=== PATIENT | female | born 1995 | race African-American/Black ===

== ENCOUNTER 2016-07-03 09:04 | Emergency (ER) | payer SELFPAY ==
[2016-07-03 09:10] VITALS: BP 124/86
--- NOTE | 2016-07-03 09:26 | ER Document Report ---
ED GI/ - General Chief Complaint: Abdominal Pain Stated Complaint: STOMACH PAIN Notes: The patient is a 21-year-old female who presents with 2 days of epigastric abdominal pain, described as a cramping sensation, and mild suprapubic pain with dysuria. She has had this multiple times in the past and it goes away without any intervention. Her last menstrual period was 4 weeks ago. She denies nausea, vomiting, fevers, flank pain, diarrhea, constipation, chest pain or shortness of breath. TRAVEL OUTSIDE OF THE [place] IN LAST 30 DAYS: No - Related Data Allergies/Adverse Reactions: No Known Allergies Allergy (Verified 07/03/16 09:08) Past Medical History - General Information source: Patient - Social History Smoking Status: Unknown if Ever Smoked Chew tobacco use (# tins/day): No Frequency of alcohol use: None Drug Abuse: None Family History: Reviewed & Not Pertinent Patient has suicidal ideation: No Patient has homicidal ideation: No Neurological Medical History: Reports: Hx Migraine - chronic MCINTOSH "yrs" Musculoskeltal Medical History: Reports Hx Musculoskeletal Trauma - Immunizations Immunizations up to date: Yes Hx Diphtheria, Pertussis, Tetanus Vaccination: Yes Review of Systems - Review of Systems Notes: REVIEW OF SYSTEMS: CONSTITUTIONAL: -fevers, -chills EENT: Denies eye, ear, throat, or mouth pain or symptoms. Denies nasal or sinus congestion. CARDIOVASCULAR: Denies chest pain, syncope. RESPIRATORY: Denies cough, cold, or chest congestion. Denies shortness of breath, difficulty breathing, or wheezing. GASTROINTESTINAL: +abdominal pain. Denies nausea, vomiting, or diarrhea. Denies constipation. GENITOURINARY: Denies difficulty urinating, painful urination, burning, frequency, or blood in urine. MUSCULOSKELETAL: Denies neck or back pain or joint pain or swelling. SKIN: Denies rash or skin lesions. HEMATOLOGIC: Denies easy bruising or bleeding. LYMPHATIC: Denies swollen, enlarged glands. NEUROLOGICAL: Denies altered mental status or loss of consciousness. Denies headache. Denies weakness or paralysis or loss of use of either side. Denies problems with gait or speech. Denies sensory or motor loss. PSYCHIATRIC: Denies anxiety or stress or depression. ALL OTHER SYSTEMS REVIEWED AND NEGATIVE. Physical Exam - Vital signs Vitals: Temp Pulse Resp BP Pulse Ox 98.5 F 78 16 124/86 H 99 07/03/16 09:08 07/03/16 09:08 07/03/16 09:08 07/03/16 09:08 07/03/16 09:08 - Notes Notes: PHYSICAL EXAMINATION: GENERAL: Well-appearing, well-nourished and in no acute distress. HEAD: Atraumatic, normocephalic. EYES: Pupils equal round and reactive to light, extraocular movements intact, sclera anicteric, conjunctiva are normal. ENT: nares patent, oropharynx clear without exudates. Moist mucous membranes. NECK: Normal range of motion, supple without lymphadenopathy LUNGS: Breath sounds clear to auscultation bilaterally and equal. No wheezes rales or rhonchi. HEART: Regular rate and rhythm without murmurs ABDOMEN: Soft, mild epigastric tender, mild suprapubic tenderness, normoactive bowel sounds. No guarding, no rebound. No masses appreciated. EXTREMITIES: Normal range of motion, no pitting or edema. No cyanosis. NEUROLOGICAL: Cranial nerves grossly intact. Normal speech, normal gait. Normal sensory, motor, and reflex exams. PSYCH: Normal mood, normal affect. SKIN: Warm, Dry, normal turgor, no rashes or lesions noted. Course - Re-evaluation Re-evalutation: With mild epigastric pain and suprapubic pain, the patient most likely has gastritis and a UTI. She is not . Will treat with Pepcid, Macrobid and follow up with her primary care physician. - Vital Signs Vital signs: Temp Pulse Resp BP Pulse Ox 98.5 F 78 16 124/86 H 99 07/03/16 09:08 07/03/16 09:08 07/03/16 09:49 07/03/16 09:08 07/03/16 09:08 - Laboratory Laboratory results interpreted by me: 07/03/16 09:35 Ur Leukocyte Esterase LARGE H Discharge - Discharge Clinical Impression: Epigastric abdominal pain UTI (urinary tract infection) Qualifiers: Urinary tract infection type: acute cystitis Hematuria presence: without hematuria Qualified Code(s): N30.00 - Acute cystitis without hematuria Condition: Good Disposition: HOME, SELF-CARE Additional Instructions: URINARY TRACT INFECTION: Your evaluation indicates that you have a urinary tract infection. This is due to germs growing in the bladder. This is a common problem. This infection usually responds quickly to antibiotics. Your antibiotic should be taken exactly as prescribed. Drink plenty of fluids -- three to four quarts a day. Occasionally, a bladder anesthetic will be prescribed to help stop the feeling of urgency until the antibiotic has a chance to clear the infection. This may cause your urine to be dark orange. Certain urine infections require a culture. If the doctor obtained a culture, the results will be back in two days. You should call to see if a change in treatment is needed. A repeat urinalysis after you finish treatment is often recommended. The physician will let you know if further testing is required. Call the doctor if you develop fever, chills, flank pain, inability to urinate, or blood in the urine. ANTIBIOTIC THERAPY: You have been given an antibiotic prescription. It's important that you take all the medication, unless instructed otherwise by your physician. Failure to complete the entire course can result in relapse of your condition. Common side effects of antibiotics include nausea, intestinal cramping, or diarrhea. Women may develop vaginal yeast infections, and babies can get yeast (thrush) in the mouth following the use of antibiotics. Contact your physician if you develop significant side effects from this medication. Allergy to this antibiotic can result in hives, wheezing, faintness, or itching. If symptoms of allergy occur, stop the medication and call the doctor. NITROFURANTOIN (MACRODANTIN, MACROBID): You have received a prescription for nitrofurantoin (Macrodantin). This antibiotic is used for urinary tract infections. Women who are or nursing should notify the physician before taking this medicine. If you have ever had a problem caused by this medication in the past, be sure the physician is aware of it. Common side effects of this medicine include nausea, vomiting, or decreased appetite. Notify your physician if these side effects become severe. Immediately stop this medicine and call the physician if you develop cough , shortness of breath, chest pain, weakness, jaundice (yellow color of the skin and whites of the eyes), or a skin rash. URINARY ANESTHETIC AGENT: You have been given a medication (Pyridium) for urinary tract discomfort. This medicine numbs the lining of the bladder and urethra, resulting in less pain, burning, and urgency. You may take it as needed, according to instructions. When the symptoms resolve, you can stop this medication (be sure to continue any other medications the doctor has given you). This medicine turns the urine a dark orange. It may stain underwear. Occasionally, it can cause nausea. Return for evaluation if there are any unexpected effects, such as itching, hives, or shortness of breath. FOLLOW-UP CARE: If you have been referred to a physician for follow-up care, call the physician s office for an appointment as you were instructed or within the next two days. If you experience worsening or a significant change in your symptoms, notify the physician immediately or return to the Emergency Department at any time for re-evaluation. ABDOMINAL PAIN: There are many causes of abdominal pain. Pain can mean a serious problem requiring surgery (such as appendicitis). It can also be an innocent problem that goes away on its own (such as a viral infection). Often, time must pass to determine the cause of pain. The physician does not feel that hospitalization is necessary, at present. Things may change within the next 24 hours. Call the doctor or come back for re- examination if any problems occur, such as: (1) Pain that becomes more severe, steady, or becomes concentrated in one specific area. Also, pain that is more severe with movement or coughing. (2) Vomiting that persists or becomes more frequent. (3) Blood in the vomitus, urine, or bowel movements. Blood in the stool may have a tarry or black appearance. (4) Shaking chills or fever greater than 100 degrees F. (5) The abdomen becomes more distended or swollen. (6) Bowel movements cease. (7) Failure to improve as expected. NORMAL EXAM AND WORKUP: At this time, your examination and workup show no significant abnormality. No significant abnormal physical findings are noted. All laboratory, EKG, and imaging (x-ray, CT scans, ultrasound) studies that were ordered show no significant abnormality. Although your examination and all studies that were ordered showed no significant abnormal finding, there are no examinations and no studies that are 100% accurate. There is always the possibility that some abnormality could exist and not be detected with physical examination or within the limits and capabilities of laboratory and other studies. You should return or follow up as you were instructed on your visit today for further evaluation if your symptoms do not resolve. FOLLOW-UP CARE: If you have been referred to a physician for follow-up care, call the physician s office for an appointment as you were instructed or within the next two days. If you experience worsening or a significant change in your symptoms, notify the physician immediately or return to the Emergency Department at any time for re-evaluation. FOLLOW-UP CARE: You should return for re-evaluation in 12 hours. This follow-up visit is important. If you are unable to return, or feel that the return visit is unnecessary, please call us. Prescriptions: Nitrofurantoin/Nitrofuran Mac [Macrobid 100 mg Capsule] 1 tab PO BID #10 capsule Referrals: [facility] [Provider Group] - Follow up as needed
[2016-07-03] MEDS ORDERED: FAMOTIDINE 20 MG TABLET PO ONE (09:34)
[2016-07-03 09:59] LABS: APPEARANCE,URINE SLIGHTLY-CLOUDY; BILIRUBIN,URINE NEGATIVE (NEGATIVE); GLUCOSE, URINE NEGATIVE (NEGATIVE); KETONES,URINE NEGATIVE (NEGATIVE); LEUKOCYTE ESTERASE,URINE LARGE (NEGATIVE); NITRITE,URINE NEGATIVE (NEGATIVE); PROTEIN,URINE NEGATIVE (NEGATIVE); UROBILINOGEN,URINE NEGATIVE mg/dL (<2.0)
== END 2016-07-03 10:26 | disposition home or self-care (01) ==
LOC: ER 09:04
DX: N30.00 Acute cystitis without hematuria (principal); R10.13 Epigastric pain; R10.9 Unspecified abdominal pain; R30.0 Dysuria
CPT/HCPCS: 81001; 81025; 99283

== ENCOUNTER 2016-09-24 11:18 | Emergency (ER) | payer BC, MEDICAID ==
--- NOTE | 2016-09-24 11:32 | ER Document Report ---
ED Medical Screen (RME) - General Stated Complaint: SORE THROAT,NAUSEA Notes: Patient complains of sore throat that started yesterday. Headache and nausea started this morning. Patient denies fever. Patient denies congestion, but does state she has a history of strep throat. I have greeted and performed a rapid initial assessment of this patient. A comprehensive ED assessment and evaluation of the patient, analysis of test results and completion of the medical decision making process will be conducted by additional ED providers. TRAVEL OUTSIDE OF THE [place] IN LAST 30 DAYS: No - Related Data Allergies/Adverse Reactions: No Known Allergies Allergy (Verified 09/24/16 11:29) Past Medical History Neurological Medical History: Reports: Hx Migraine - chronic MCINTOSH "yrs" Musculoskeltal Medical History: Reports Hx Musculoskeletal Trauma - Immunizations Immunizations up to date: Yes Hx Diphtheria, Pertussis, Tetanus Vaccination: Yes Physical Exam - Vital signs Vitals: Temp Pulse Resp BP Pulse Ox 98.7 F 78 14 130/80 H 100 09/24/16 11:28 09/24/16 11:28 09/24/16 11:28 09/24/16 11:28 09/24/16 11:28 - HEENT Notes: Throat with mild erythema. Course - Vital Signs Vital signs: Temp Pulse Resp BP Pulse Ox 98.7 F 78 14 130/80 H 100 09/24/16 11:28 09/24/16 11:28 09/24/16 11:28 09/24/16 11:28 09/24/16 11:28
--- NOTE | 2016-09-24 12:23 | ER Document Report ---
HPI - HPI Patient complains to provider of: sore throat Onset: Yesterday Onset/Duration: Gradual Pain Level: 4 Context: 21 yo female c/o sore throat. No fever. No cough. Associated Symptoms: None Exacerbated by: Denies Relieved by: Denies Similar symptoms previously: No Recently seen / treated by doctor: No - ROS ROS below otherwise negative: Yes Systems Reviewed and Negative: Yes All other systems reviewed and negative - REPRODUCTIVE Reproductive: DENIES: : - DERM Skin Color: Normal Past Medical History - General Information source: Patient - Social History Smoking Status: Never Smoker Chew tobacco use (# tins/day): No Frequency of alcohol use: None Drug Abuse: None Lives with: Spouse/Significant other Family History: Reviewed & Not Pertinent Patient has suicidal ideation: No Patient has homicidal ideation: No Neurological Medical History: Reports: Hx Migraine - chronic MCINTOSH "yrs" Renal/ Medical History: Denies: Hx Peritoneal Dialysis Musculoskeltal Medical History: Reports Hx Musculoskeletal Trauma Surgical Hx: Negative - Immunizations Immunizations up to date: Yes Hx Diphtheria, Pertussis, Tetanus Vaccination: Yes Vertical Provider Document - CONSTITUTIONAL Agree With Documented VS: Yes Exam Limitations: No Limitations General Appearance: No Apparent Distress - INFECTION CONTROL TRAVEL OUTSIDE OF THE [place] IN LAST 30 DAYS: No - HEENT HEENT: Normocephalic, Pharyngeal Erythema - minimal. negative: Conjuctival Injection, Tympanic Membrane Red - NECK Neck: Supple. negative: Lymphadenopathy-Left, Lymphadenopathy-Right - RESPIRATORY Respiratory: Breath Sounds Normal, No Respiratory Distress O2 Sat by Pulse Oximetry: 100 - CARDIOVASCULAR Cardiovascular: Regular Rate, Regular Rhythm - GI/ABDOMEN Gastrointestinal: Abdomen Soft, Abdomen Non-Tender, No Organomegaly - MUSCULOSKELETAL/EXTREMETIES Musculoskeletal/Extremeties: MAEW, FROM - NEURO Level of Consciousness: Awake, Alert, Appropriate - DERM Integumentary: Warm, Dry, No Rash Course - Vital Signs Vital signs: Temp Pulse Resp BP Pulse Ox 98.7 F 78 14 130/80 H 100 09/24/16 11:28 09/24/16 11:28 09/24/16 11:28 09/24/16 11:28 09/24/16 11:28 Discharge - Discharge Clinical Impression: Sore throat Condition: Good Disposition: HOME, SELF-CARE Instructions: Penicillin V K ([facility]), Sore Throat ([facility]), Anti-Inflammatory Medication ([facility]) Additional Instructions: plenty of fluids motrin penicillin Rapid strep and throat culture are pending Please complete the patient satisfaction survey if you get one, and return it.. If you do not receive a survey, then you can go to the [facility] website, [email or web address] and place your comments about your very good care. Thank you very much. It was a pleasure being your medical provider today. Prescriptions: Ibuprofen [Motrin 800 mg Tablet] 800 mg PO Q8HP PRN #30 tablet PRN Reason: Penicillin V Potassium [Penicillin Vk 500 mg Tablet] 500 mg PO QID #40 tablet
[2016-09-24 12:57] VITALS: BP 111/68
== END 2016-09-24 12:51 | disposition home or self-care (01) ==
LOC: ER 11:18
DX: J02.9 Acute pharyngitis, unspecified (principal)
CPT/HCPCS: 87070; 87077; 87880; 99283

== ENCOUNTER 2016-10-05 16:36 | Emergency (ER) | payer SELFPAY ==
--- NOTE | 2016-10-05 17:15 | ER Document Report ---
HPI - HPI Patient complains to provider of: left calf pain Onset: Yesterday Onset/Duration: Gradual Quality of pain: Throbbing Pain Level: 4 Context: 21-year-old female complaining of posterior mid left calf pain since yesterday. No injury. No swelling. Does not take hormones. No history of DVT or PE. No recent travel and no cancer. Associated Symptoms: None Exacerbated by: Walking Relieved by: Denies Similar symptoms previously: No Recently seen / treated by doctor: No - ROS ROS below otherwise negative: Yes Systems Reviewed and Negative: Yes All other systems reviewed and negative - REPRODUCTIVE Reproductive: DENIES: : - DERM Skin Color: Normal Past Medical History - General Information source: Patient - Social History Smoking Status: Never Smoker Frequency of alcohol use: None Drug Abuse: None Lives with: Family Family History: Reviewed & Not Pertinent Patient has suicidal ideation: No Patient has homicidal ideation: No Neurological Medical History: Reports: Hx Migraine - chronic MCINTOSH "yrs" Renal/ Medical History: Denies: Hx Peritoneal Dialysis Musculoskeltal Medical History: Reports Hx Musculoskeletal Trauma Surgical Hx: Negative - Immunizations Immunizations up to date: Yes Hx Diphtheria, Pertussis, Tetanus Vaccination: Yes Vertical Provider Document - CONSTITUTIONAL Agree With Documented VS: Yes - INFECTION CONTROL TRAVEL OUTSIDE OF THE [place] IN LAST 30 DAYS: No - HEENT HEENT: Normocephalic - NECK Neck: Supple, Thyroid Normal. negative: Lymphadenopathy-Left, Lymphadenopathy- Right - RESPIRATORY Respiratory: Breath Sounds Normal, No Respiratory Distress O2 Sat by Pulse Oximetry: 100 - CARDIOVASCULAR Cardiovascular: Regular Rate, Regular Rhythm - MUSCULOSKELETAL/EXTREMETIES Musculoskeletal/Extremeties: MAEW, FROM, Tender - mid left calf, no swelling or edrythema, No Edema. negative: Eccymosis - NEURO Level of Consciousness: Awake, Alert, Appropriate - DERM Integumentary: Warm, Dry, No Rash Course - Re-evaluation Re-evalutation: 10/05/16 17:[address] Sanchez who recommends getting a d-dimer if it is not detectable that she does not need a bruised upper ultrasound. If this is anything higher than not detectable get the venous Doppler ultrasound. Patient denies dizziness, shortness of breath or chest pain. 10/05/16 18:[address] morgan, pt has hx of anemia, microcytic, will have her take iron 3 times a day with stool softner, dr morgan states she can be discharged since the d dimer is less than 0.27 which is the lowest that our lab can report out. 10/05/16 18:35 - Vital Signs Vital signs: Temp Pulse Resp BP Pulse Ox 98.7 F 81 16 133/65 H 100 10/05/16 16:44 10/05/16 16:44 10/05/16 16:44 10/05/16 16:44 10/05/16 16:44 - Laboratory Result Diagrams: 10/05/16 17:37 Discharge - Discharge Clinical Impression: Pain of left calf, Microcytic anemia Condition: Good Disposition: HOME, SELF-CARE Instructions: Anemia, Iron Deficiency ([facility]), Leg Pain Nonspecific ([facility]), Family Physicians / Practices Additional Instructions: warm compress motrin and tylenol for pain to er if worse take ferrous sulfate over the counter 325mg three times per day stool softner daily see your doctor in 1 month for recheck of your hemaglobin Please complete the patient satisfaction survey if you get one, and return it.. If you do not receive a survey, then you can go to the [facility] website, [email or web address] and place your comments about your very good care. Thank you very much. It was a pleasure being your medical provider today. Forms: Return to Work
--- NOTE | 2016-10-05 17:23 | ER Document Report ---
HPI - HPI Pain Level: 4 - REPRODUCTIVE Reproductive: DENIES: : - DERM Skin Color: Normal Past Medical History - Social History Smoking Status: Never Smoker Chew tobacco use (# tins/day): No Frequency of alcohol use: None Drug Abuse: None Family History: Reviewed & Not Pertinent Patient has suicidal ideation: No Patient has homicidal ideation: No Neurological Medical History: Reports: Hx Migraine - chronic MCINTOSH "yrs" Renal/ Medical History: Denies: Hx Peritoneal Dialysis Musculoskeltal Medical History: Reports Hx Musculoskeletal Trauma - Immunizations Immunizations up to date: Yes Hx Diphtheria, Pertussis, Tetanus Vaccination: Yes Vertical Provider Document - INFECTION CONTROL TRAVEL OUTSIDE OF THE [place] IN LAST 30 DAYS: No - RESPIRATORY O2 Sat by Pulse Oximetry: 100 Course - Vital Signs Vital signs: Temp Pulse Resp BP Pulse Ox 98.7 F 81 16 133/65 H 100 10/05/16 16:44 10/05/16 16:44 10/05/16 16:44 10/05/16 16:44 10/05/16 17:15
[2016-10-05 17:51] LABS: HEMATOCRIT 24.5 % (36.0-47.0); HGB HCT DIFFERENCE -1.7; MEAN CORPUSCULAR HEMOGLOBIN 18.7 pg (27.0-33.4); MEAN CORPUSCULAR VOLUME 61 fl (80-97); RED BLOOD COUNT 4.06 10^6/uL (3.72-5.28); RED CELL DISTRIBUTION WIDTH 20.2 % (11.5-14.0); WHITE BLOOD COUNT 4.6 10^3/uL (4.0-10.5)
[2016-10-05 18:03] LABS: HEMOGLOBIN 7.6 g/dL (12.0-15.5)
[2016-10-05 18:07] LABS: PARTIAL THROMBOPLASTIN TIME 29.3 SEC (23.5-35.8); PROTHROMBIN TIME 13.7 SEC (11.4-15.4)
[2016-10-05 18:15] LABS: ANISOCYTOSIS 2+; HYPOCHROMASIA 2+; OVALOCYTES SLIGHT; POIKILOCYTOSIS SLIGHT; TARGET CELLS SLIGHT; TOXIC GRANULATION SLIGHT
[2016-10-05 18:16] LABS: MICROCYTOSIS 2+
[2016-10-05 18:20] LABS: D-DIMER < 0.27 ug/mL (0.00-0.50)
[2016-10-05] MEDS ORDERED: ACETAMINOPHEN 325 MG TABLET PO ONE (18:34)
[2016-10-05 18:57] VITALS: BP 122/80
== END 2016-10-05 18:57 | disposition home or self-care (01) ==
LOC: ER 16:36
DX: M79.605 Pain in left leg (principal); D50.9 Iron deficiency anemia, unspecified
CPT/HCPCS: 36415; 85025; 85379; 85610; 85730; 99283

== ENCOUNTER 2016-12-14 13:09 | Emergency (ER) | payer MEDICAID ==
--- NOTE | 2016-12-14 15:57 | ER Document Report ---
HPI - HPI Patient complains to provider of: Right hand pain and tingling Onset: Yesterday Onset/Duration: Intermittent Quality of pain: Throbbing Severity: Moderate Pain Level: 4 Context: Patient states she has had these symptoms in the past but has not followed up with her primary care physician. Denies injury, stating tingling and pain is with certain movements and holding objects. No fever or recent illness. Associated Symptoms: None Exacerbated by: Movement, Other - Holding objects Relieved by: Remaining still Similar symptoms previously: Yes Recently seen / treated by doctor: No - ROS ROS below otherwise negative: Yes Systems Reviewed and Negative: Yes All other systems reviewed and negative - CONSTITUTIONAL Constitutional: DENIES: Fever - EENT EENT: DENIES: Congestion - NEURO Neurology: DENIES: Headache - CARDIOVASCULAR Cardiovascular: DENIES: Chest pain - RESPIRATORY Respiratory: DENIES: Trouble Breathing - GASTROINTESTINAL Gastrointestinal: DENIES: Abdominal Pain - REPRODUCTIVE LMP: 11/24/16 Reproductive: DENIES: : - MUSCULOSKELETAL Musculoskeletal: REPORTS: Extremity pain - Right hand. DENIES: Swelling - DERM Skin Color: Normal Skin Problems: None Past Medical History - General Information source: Patient - Social History Smoking Status: Never Smoker Frequency of alcohol use: None Drug Abuse: None Lives with: Family Family History: Reviewed & Not Pertinent Patient has suicidal ideation: No Patient has homicidal ideation: No Neurological Medical History: Reports: Hx Migraine - chronic MCINTOSH "yrs" Musculoskeltal Medical History: Reports Hx Musculoskeletal Trauma Surgical Hx: Negative - Immunizations Immunizations up to date: Yes Hx Diphtheria, Pertussis, Tetanus Vaccination: Yes Vertical Provider Document - CONSTITUTIONAL Agree With Documented VS: Yes Exam Limitations: No Limitations General Appearance: WD/WN, No Apparent Distress - INFECTION CONTROL TRAVEL OUTSIDE OF THE [place] 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 Tender over right palmar side of the wrist over carpal nerve, reproduces symptoms. - NEURO Level of Consciousness: Awake, Alert, Appropriate - DERM Integumentary: Warm, Dry, No Rash Course - Vital Signs Vital signs: Temp Pulse Resp BP Pulse Ox 98.9 F 77 18 127/85 H 100 12/14/16 13:33 12/14/16 13:33 12/14/16 13:33 12/14/16 13:33 12/14/16 13:33 Procedures - Immobilization Right Hand Pre-Proc Neuro Vasc Exam: Normal Immobilizer type: Cock-up Performed by: PCT Post-Proc Neuro Vasc Exam: Normal Alignment checked and good: Yes Discharge - Discharge Clinical Impression: Right hand pain Condition: Good Disposition: HOME, SELF-CARE Additional Instructions: Your symptoms resemble those of carpal tunnel syndrome wear splint as instructed Ibuprofen for pain Recommend follow-up with your doctor this week for recheck, and possible referral for evaluation. Return as needed Prescriptions: Ibuprofen 800 mg PO PRN PRN #15 tablet PRN Reason: Forms: Parent Work Note, Return to Work
[2016-12-14 16:34] VITALS: BP 115/68
== END 2016-12-14 16:25 | disposition home or self-care (01) ==
LOC: ER 13:09
DX: M79.641 Pain in right hand (principal); R20.2 Paresthesia of skin
CPT/HCPCS: 99283; L3984

== ENCOUNTER 2017-01-19 14:59 | Emergency (ER) | payer SELFPAY ==
[2017-01-19] MEDS ORDERED: METOCLOPRAMIDE HCL ORAL SOLN 10 MG/10 ML UDCUP PO ONE (15:19)
--- NOTE | 2017-01-19 15:19 | ER Document Report ---
ED Medical Screen (RME) - General Chief Complaint: Abdominal Pain Stated Complaint: SHORTNESS OF BREATH,HEADACHE Time Seen by Provider: 01/19/17 15:18 Notes: 21 yo healthy female c/o acute onset of shortness of breath, headache, fatigue, nausea and pain to left lateral chest wall this morning. hurts to breathe. no fever, no cough. nonsmoker. uses Depo for control TRAVEL OUTSIDE OF THE [place] IN LAST 30 DAYS: No - Related Data Allergies/Adverse Reactions: No Known Allergies Allergy (Verified 01/19/17 15:07) Past Medical History Neurological Medical History: Reports: Hx Migraine - chronic MCINTOSH "yrs" Renal/ Medical History: Denies: Hx Peritoneal Dialysis Musculoskeltal Medical History: Reports Hx Musculoskeletal Trauma - Immunizations Immunizations up to date: Yes Hx Diphtheria, Pertussis, Tetanus Vaccination: Yes Physical Exam - Vital signs Vitals: Temp Pulse Resp BP Pulse Ox 98.8 F 95 18 129/92 H 100 01/19/17 15:06 01/19/17 15:06 01/19/17 15:06 01/19/17 15:06 01/19/17 15:06 Course - Vital Signs Vital signs: Temp Pulse Resp BP Pulse Ox 98.8 F 95 18 129/92 H 100 01/19/17 15:06 01/19/17 15:06 01/19/17 15:06 01/19/17 15:06 01/19/17 15:06
--- NOTE | 2017-01-19 15:59 | RADIOLOGY REPORT (SQ) ---
EXAM DESCRIPTION: CHEST PA/LAT COMPLETED DATE/TIME: 01/19/2017 3:52 pm REASON FOR STUDY: left sided chest pain COMPARISON: None. EXAM PARAMETERS: NUMBER OF VIEWS: two views TECHNIQUE: Digital Frontal and Lateral radiographic views of the chest acquired. RADIATION DOSE: NA LIMITATIONS: none FINDINGS: LUNGS AND PLEURA: No opacities, masses or pneumothorax. No pleural effusion. MEDIASTINUM AND HILAR STRUCTURES: No masses or contour abnormalities. HEART AND VASCULAR STRUCTURES: Heart normal size. No evidence for failure. BONES: No acute findings. HARDWARE: None in the chest. OTHER: No other significant finding. IMPRESSION: NO SIGNIFICANT RADIOGRAPHIC FINDING IN THE CHEST. TECHNICAL DOCUMENTATION: JOB ID: [id number] [employer]- All Rights Reserved
[2017-01-19 16:03] LABS: APPEARANCE,URINE SLIGHTLY-CLOUDY; BILIRUBIN,URINE NEGATIVE (NEGATIVE); GLUCOSE, URINE NEGATIVE (NEGATIVE); KETONES,URINE NEGATIVE (NEGATIVE); LEUKOCYTE ESTERASE,URINE NEGATIVE (NEGATIVE); NITRITE,URINE NEGATIVE (NEGATIVE); PROTEIN,URINE NEGATIVE (NEGATIVE); URINE SPECIFIC GRAVITY 1.011; UROBILINOGEN,URINE NEGATIVE mg/dL (<2.0)
[2017-01-19 16:06] LABS: HEMATOCRIT 27.4 % (36.0-47.0); HEMOGLOBIN 8.2 g/dL (12.0-15.5); HGB HCT DIFFERENCE -2.8; MEAN CORPUSCULAR HEMOGLOBIN 17.9 pg (27.0-33.4); MEAN CORPUSCULAR HGB CONC 30.1 g/dL (32.0-36.0); RED CELL DISTRIBUTION WIDTH 19.4 % (11.5-14.0); WHITE BLOOD COUNT 4.5 10^3/uL (4.0-10.5)
[2017-01-19 16:17] LABS: ALANINE AMINOTRANSFERASE 25 U/L (9-52); ALBUMIN 5.2 g/dL (3.5-5.0); ALKALINE PHOSPHATASE 40 U/L (38-126); ANION GAP 16 (5-19); ASPARTATE AMINO TRANSFERASE 21 U/L (14-36); BILIRUBIN,DIRECT 0.3 mg/dL (0.0-0.4); BILIRUBIN,TOTAL 0.5 mg/dL (0.2-1.3); BLOOD UREA NITROGEN 10 mg/dL (7-20); CALCIUM 10.1 mg/dL (8.4-10.2); CARBON DIOXIDE 22 mmol/L (22-30); CHLORIDE 104 mmol/L (98-107); CREATININE RESULT 0.74 mg/dL (0.52-1.25); GLUCOSE 81 mg/dL (75-110); LIPASE 104.4 U/L (23-300); POTASSIUM 3.9 mmol/L (3.6-5.0); SODIUM 141.7 mmol/L (137-145); TOTAL PROTEIN 9.2 g/dL (6.3-8.2)
[2017-01-19 16:24] LABS: MEAN CORPUSCULAR VOLUME 60 fl (80-97)
[2017-01-19 16:29] LABS: BASOPHILS % (MANUAL) 1 % (0-2); EOSINOPHILS % (MANUAL) 0 % (0-6); LYMPHOCYTES % (MANUAL) 41 % (13-45); TOTAL CELLS COUNTED 100; TOXIC VACUOLATION PRESENT
[2017-01-19 16:34] LABS: ANISOCYTOSIS 2+; MICROCYTOSIS 3+; OVALOCYTES 1+; POIKILOCYTOSIS 1+; POLYCHROMASIA SLIGHT; TARGET CELLS 1+; TEAR DROP CELLS SLIGHT
[2017-01-19 16:37] LABS: HYPOCHROMASIA 3+
[2017-01-19] MEDS ORDERED: NORMAL SALINE 1000 ML 1,000 ML IV PRN ×2 (16:53→18:40)
[2017-01-19] MEDS ORDERED: KETOROLAC TROMETHAMINE INJ/PF 30 MG/1 ML SDV IV ONE (16:53)
[2017-01-19] MEDS ORDERED: ONDANSETRON HCL INJ/PF 4 MG/2 ML SDV IV ONE (16:53)
--- NOTE | 2017-01-19 16:54 | ER Document Report ---
ED General - General Chief Complaint: Abdominal Pain Stated Complaint: SHORTNESS OF BREATH,HEADACHE Time Seen by Provider: 01/19/17 15:18 Mode of Arrival: Ambulatory Information source: Patient TRAVEL OUTSIDE OF THE [place] IN LAST 30 DAYS: No - HPI Patient complains to provider of: Chest pain, shortness of breath, headache, nausea Onset: This morning Onset/Duration: Sudden Quality of pain: Achy Severity: Moderate Pain Level: 3 Associated symptoms: Chest pain, Headache, Nausea, Shortness of breath Exacerbated by: Denies Relieved by: Denies Similar symptoms previously: Yes Recently seen / treated by doctor: No Notes: Patient is a 21-year-old female with a history of frequent headaches as well as anemia, who presents to the emergency room today complaining of chest pain to the left side of her chest, as well as shortness of breath, a frontal headache, and nausea, pain is worse with deep breathing, she does report some generalized weakness, symptoms all started this morning, she reports a history of similar symptoms in the past with no known diagnosis, denies any sinus pain or congestion, no vomiting or diarrhea, no fever or chills, no recent travel or periods of immobilization, patient is not a smoker, she does currently receive a Depo-Provera injection regularly, has a history of iron deficiency anemia and admits to being noncompliant with taking her iron as she believes it does not do anything for her, she has never received a blood transfusion - Related Data Allergies/Adverse Reactions: No Known Allergies Allergy (Verified 01/19/17 15:07) Past Medical History - General Information source: Patient - Social History Smoking Status: Never Smoker Chew tobacco use (# tins/day): No Frequency of alcohol use: None Drug Abuse: None Family History: Reviewed & Not Pertinent Neurological Medical History: Reports: Hx Migraine - chronic MCINTOSH "yrs" Renal/ Medical History: Denies: Hx Peritoneal Dialysis Musculoskeltal Medical History: Reports Hx Musculoskeletal Trauma Surgical Hx: Negative - Immunizations Immunizations up to date: Yes Hx Diphtheria, Pertussis, Tetanus Vaccination: Yes Review of Systems - Review of Systems Constitutional: No symptoms reported EENT: No symptoms reported Cardiovascular: See HPI Respiratory: See HPI Gastrointestinal: See HPI Genitourinary: No symptoms reported Female Genitourinary: No symptoms reported Musculoskeletal: No symptoms reported Skin: No symptoms reported Hematologic/Lymphatic: No symptoms reported Neurological/Psychological: Headaches -: Yes All other systems reviewed and negative Physical Exam - Vital signs Vitals: Temp Pulse Resp BP Pulse Ox 98.8 F 95 18 129/92 H 100 01/19/17 15:06 01/19/17 15:06 01/19/17 15:06 01/19/17 15:06 01/19/17 15:06 Interpretation: Normal - General General appearance: Appears well, Alert - HEENT Head: Normocephalic, Atraumatic Eyes: Normal Pupils: PERRL - Respiratory Respiratory status: No respiratory distress Chest status: Nontender Breath sounds: Normal Chest palpation: Normal - Cardiovascular Rhythm: Regular Heart sounds: Normal auscultation Murmur: No - Abdominal Inspection: Normal Distension: No distension Bowel sounds: Normal Tenderness: Nontender Organomegaly: No organomegaly - Back Back: Normal, Nontender - Extremities General upper extremity: Normal inspection, Nontender, Normal color, Normal ROM , Normal temperature General lower extremity: Normal inspection, Nontender, Tender - Tenderness to palpate in the left posterior calf, Normal color, Normal ROM, Normal temperature , Normal weight bearing - Neurological Neuro grossly intact: Yes Cognition: Normal Orientation: AAOx4 Jeanine Coma Scale Eye Opening: Spontaneous Jeanine Coma Scale Verbal: Oriented [place] Coma Scale Motor: Obeys Commands Jeanine Coma Scale Total: 15 Speech: Normal Motor strength normal: LUE, RUE, LLE, RLE Sensory: Normal - Psychological Associated symptoms: Normal affect, Normal mood - Skin Skin Temperature: Warm Skin Moisture: Dry Skin Color: Normal Course - Re-evaluation Re-evalutation: 01/19/17 20:09 Laboratory and imaging findings were discussed with patient and several family members at bedside prior to discharge which are consistent with chronic anemia, and a superficial vein thrombosis in the left calf, patient was given a prescription for Motrin 600 mg 3 times daily, advised to follow-up with her primary care provider as well as advised to take her iron on a daily basis as prescribed, patient acknowledges understanding and agreement with this plan - Vital Signs Vital signs: Temp Pulse Resp BP Pulse Ox 98.8 F 95 18 129/92 H 100 01/19/17 15:06 01/19/17 15:06 01/19/17 15:06 01/19/17 15:06 01/19/17 15:06 - Laboratory Result Diagrams: 01/19/17 15:52 01/19/17 15:52 Laboratory results interpreted by me: 01/19/17 01/19/17 01/19/17 15:45 15:52 15:52 Hgb 8.2 L Hct 27.4 L MCV 60 L MCH 17.9 L MCHC 30.1 L RDW 19.4 H Monocytes % (Manual) 14 H Total Protein 9.2 H Albumin 5.2 H Urine Blood SMALL H Urine Ascorbic Acid 40 H - Diagnostic Test Radiology reviewed: Image reviewed, Reports reviewed - EKG Interpretation by Me EKG shows normal: Sinus rhythm Rate: Normal Rhythm: NSR Discharge - Discharge Clinical Impression: Superficial vein thrombosis Anemia Qualifiers: Anemia type: iron deficiency Iron deficiency anemia type: unspecified iron deficiency Qualified Code(s): D50.9 - Iron deficiency anemia, unspecified Headache Qualifiers: Headache type: unspecified Headache chronicity pattern: chronic headache Intractability: not intractable Qualified Code(s): R51 - Headache Condition: Stable Disposition: HOME, SELF-CARE Instructions: Headache ([facility]), Chest Pain of Unclear Cause ([facility]), Anemia, Iron Deficiency ([facility]) Additional Instructions: Follow up with your primary care provider in one to 2 days. Return to the emergency room immediately if symptoms worsen or any additional concerns. Prescriptions: Ibuprofen [Motrin 600 Mg Tablet] 600 mg PO TID #30 tablet
--- NOTE | 2017-01-19 17:38 | EKG REPORT ---
SEVERITY:- NORMAL ECG - SINUS RHYTHM : Confirmed by: Elisa Anand MD 19-Jan-2017 17:37:52
[2017-01-19] MEDS ORDERED: DIPHENHYDRAMINE HCL 50 MG/ML VIAL IV ONE (18:40)
[2017-01-19] MEDS ORDERED: METOCLOPRAMIDE HCL INJ/PF 10 MG/2 ML SDV IV ONE (18:40)
--- NOTE | 2017-01-19 19:29 | RADIOLOGY REPORT (SQ) ---
EXAM DESCRIPTION: CTA CHEST COMPLETED DATE/TIME: 01/19/2017 7:04 pm REASON FOR STUDY: SOB COMPARISON: Chest x-ray dated 01/19/2017 TECHNIQUE: CT scan of the chest performed using helical scanning technique with dynamic intravenous contrast injection. Images reviewed with lung, soft tissue and bone windows. Reconstructed coronal and sagittal MPR images reviewed. Additional 3 dimensional post-processing performed to develop Maximal Intensity Projection images (ND P). All images stored on PACS. All CT scanners at this facility use dose modulation, iterative reconstruction, and/or weight based d osing when appropriate to reduce radiation dose to as low as reasonably achievable (ALARA). [facility]: Dose Right [facility]: CareDose [facility]: Dose Right [facility]: Teradose 4D [facility]: [facility] CONTRAST TYPE AND DOSE: contrast/concentration: Isovue 370.00 mg/ml; Total Contrast Delivered: 61.0 ml; Total Saline Delivered: 100.1 ml RENAL FUNCTION: Creatinine 0.74 RADIATION DOSE: Up-to-date CT equipment and radiation dose reduction techniques were employed. CTDIv ol: 9.4 - 10.6 mGy. DLP: 407 mGy-cm. . LIMITATIONS: None. FINDINGS: LUNGS AND PLEURA: No masses, infiltrates, pneumothorax. No pleural effusions, calcificati ons. Tiny pulmonary nodule is identified in the right upper lobe best seen on image number 21. AORTA AND GREAT VESSELS: No aneurysm or dissection. HEART: No pericardial effusion. PULMONARY ARTERIES: No emboli visualized in the main pulmonary arteries or the segmental branches. HILAR AND MEDIASTINAL STRUCTURES: No identified masses or abnormal nodes. HARDWARE: None in the chest. UPPER ABDOMEN: No significant findings. Limited exam. THYROID AND OTHER SOFT TISSUES: No masses. No adenopathy. BONES: No acute or significant finding. 3D MIPS: Confirm above findings. OTHER: No other significant finding. IMPRESSION: No evidence for pulmonary embolic disease. No acute consolidations or pleural effusions . Other findings as noted above TECHNICAL DOCUMENTATION: JOB ID: [id number] Quality ID # [id number]: Final reports with documentation of one or more dose reduction techniques (e.g., Au tomated exposure control, adjustment of the mA and/or kV according to patient size, use of iterative reconstruction technique) 2010 [employer]- All Rights Reserved
--- NOTE | 2017-01-19 19:46 | RADIOLOGY REPORT (SQ) ---
EXAM DESCRIPTION: VENOUS UNILATERAL LOWER COMPLETED DATE/TIME: 01/19/2017 7:39 pm REASON FOR STUDY: left calf pain COMPARISON: None. TECHNIQUE: Dynamic and static noe scale and color images acquired of the left leg venous system. Se lected spectral images acquired with additional compression and augmentation maneuvers. The contralat eral common femoral vein and saphenofemoral junction were also imaged. Images stored on PACS. LIMITATIONS: None. FINDINGS: COMMON FEMORAL: Normal phasicity, compression and augmentation. No visualized echogenic ma terial on noe scale. No defects on color images. FEMORAL: Normal compression and augmentation. No visualized echogenic material on noe scale. No defe cts on color images. POPLITEAL: Normal compression, augmentation. No visualized echogenic material on noe scale. No defec ts on color images. CALF VESSELS: Normal compression, augmentation. No visualized echogenic material on noe scale. No de fects on color images. GSV and SSV: Intraluminal thrombus is identified in the greater saphenous vein and small saphenous ve in. ANY DEEP VENOUS INSUFFICIENCY: Not evaluated. ANY EVIDENCE OF POPLITEAL CYST: No. OTHER: No other significant finding. CONTRALATERAL COMMON FEMORAL VEIN AND SAPHENOFEMORAL JUNCTION: Normal phasicity, compression and augmentation. No visualized echogenic material on noe scale. No de fects on color images. IMPRESSION: No evidence for deep venous thrombosis in the left lower extremity. Intraluminal thromb us is identified in the greater saphenous vein and small saphenous vein. TECHNICAL DOCUMENTATION: JOB ID: [id number] [employer]- All Rights Reserved
[2017-01-19 20:33] VITALS: BP 108/56
== END 2017-01-19 20:25 | disposition home or self-care (01) ==
LOC: ER 14:59
DX: R51 Headache (principal); I82.812 Embolism and thrombosis of superficial veins of left lower extremity; D50.9 Iron deficiency anemia, unspecified; T45.4X6A Underdosing of iron and its compounds, initial encounter; Z91.128 Patient's intentional underdosing of medication regimen for other reason; Z91.14 Patient's other noncompliance with medication regimen; R07.9 Chest pain, unspecified; R06.02 Shortness of breath; R11.0 Nausea; R53.1 Weakness; Z79.3 Long term (current) use of hormonal contraceptives
CPT/HCPCS: 93005; 99285; 96361; 96374; 96375; 36415; 83690; 85025; 81025; 80053; 81001; 93971; 71020; 71275; 93010; J1200; J1885; J2765; J2405; J7030

== ENCOUNTER 2017-02-09 20:02 | Emergency (ER) | payer SELFPAY ==
--- NOTE | 2017-02-09 22:12 | ER Document Report ---
ED Extremity Problem, Lower - General Mode of Arrival: Wheelchair Information source: Patient TRAVEL OUTSIDE OF THE [place] IN LAST 30 DAYS: No - HPI Occurred: Other - Refer to HPI notes - General Chief Complaint: Foot Pain Stated Complaint: LEFT FOOT PAIN Time Seen by Provider: 02/09/17 22:08 Notes: Patient is a 21 year old female presenting to the emergency department for pain to her left foot. Patient states that she has pain when she is walking and is mostly located in the medial arch and into her great toe. Patient denies any injury or trauma to this foot. Patient had a Doppler study completed 2 weeks ago and mother states there is a superficial clot in her left leg. Patient has no pain to her right foot. Patient has no medical problems, does not take any medications on a regular basis, and has no known drug allergies. (AMAN NATARAJAN) - Related Data Allergies/Adverse Reactions: No Known Allergies Allergy (Verified 02/09/17 22:25) Past Medical History - General Information source: Patient, Parent - Social History Smoking Status: Never Smoker Cigarette use (# per day): No Chew tobacco use (# tins/day): No Smoking Education Provided: No Frequency of alcohol use: None Drug Abuse: None Family History: None Patient has suicidal ideation: No Patient has homicidal ideation: No Neurological Medical History: Reports: Hx Migraine - chronic MCINTOSH "yrs" Musculoskeltal Medical History: Reports Hx Musculoskeletal Trauma Surgical Hx: Negative - Immunizations Immunizations up to date: Yes Hx Diphtheria, Pertussis, Tetanus Vaccination: Yes Review of Systems - Review of Systems Constitutional: No symptoms reported EENT: No symptoms reported Cardiovascular: No symptoms reported Respiratory: No symptoms reported Gastrointestinal: No symptoms reported Genitourinary: No symptoms reported Female Genitourinary: No symptoms reported Musculoskeletal: See HPI Skin: No symptoms reported Hematologic/Lymphatic: No symptoms reported Neurological/Psychological: No symptoms reported -: Yes All other systems reviewed and negative Physical Exam - Vital signs Interpretation: Normal - Vital signs Vitals: Temp Pulse Resp BP Pulse Ox 98.6 F 69 16 125/73 100 02/09/17 21:07 02/09/17 21:07 02/09/17 21:07 02/09/17 21:07 02/09/17 21:07 - Notes Notes: GENERAL: Alert, interacts well. No acute distress. HEAD: Normocephalic, atraumatic. EYES: Appear normal. Pupils equal, round, and reactive to light. ENT: Moist mucus membranes, tongue midline. NECK: Full range of motion. Supple. Trachea midline. LUNGS: No respiratory distress. EXTREMITIES: Moves all 4 extremities spontaneously. Normal strength. No edema. Tenderness to palpate over the left medial arch in the plantar fascia region. Tenderness with dorsiflexion of the left great toe. NEUROLOGICAL: Alert and oriented x3. Normal speech. No focal neurological deficits. GSC 15. PSYCH: Normal affect, normal mood. SKIN: Warm, dry, normal turgor. No rashes or lesions noted. (AMAN NATARAJAN) Course - Re-evaluation Re-evalutation: 02/09 Patient with no acute trauma. Patient has had foot pain is increasing. It is consistent with plantar fasciitis. Patient is instructed to wear supportive footwear and not flip-flops which she has been doing recently. She is to take naproxen and ice her foot. Follow-up with podiatry as needed. No other evidence for concerning underlying medical condition at this time. (NIKHIL GRAY) - Vital Signs Vital signs: Temp Pulse Resp BP Pulse Ox 97.8 F 70 14 124/80 100 02/09/17 22:55 02/09/17 22:55 02/09/17 22:55 02/09/17 22:55 02/09/17 22:55 Discharge - Discharge Clinical Impression: Plantar fasciitis of left foot Condition: Stable Disposition: HOME, SELF-CARE Instructions: Ice & Elevation ([facility]), Ice Massage ([facility]), Plantar Fasciitis or Heel Spur ([facility]) Additional Instructions: Please follow-up with your doctor. Wear supportive footwear. Prescriptions: Naproxen [Naprosyn 250 mg Tablet] 250 mg PO DAILY PRN #30 tablet PRN Reason: Forms: Return to Work Scribe Attestation: 02/10/17 05:57 I personally performed the services described in the documentation, reviewed and edited the documentation which was dictated to the scribe in my presence, and it accurately records my words and actions. (NIKHIL GRAY) Scribe Documentation - Scribe Written by Scribe:: Sandro Wolfe, 02/10/2017 2:25 acting as scribe for :: Omi
[2017-02-09] MEDS ORDERED: NAPROXEN 250 MG TABLET PO ONE (22:38)
[2017-02-09 22:58] VITALS: BP 124/80
== END 2017-02-09 22:55 | disposition home or self-care (01) ==
LOC: ER 20:02
DX: M72.2 Plantar fascial fibromatosis (principal)
CPT/HCPCS: 99283

== ENCOUNTER 2017-03-03 07:22 | Emergency (ER) | payer SELFPAY ==
[2017-03-03] MEDS ORDERED: ACETAMINOPHEN 325 MG TABLET PO ONE (07:54)
--- NOTE | 2017-03-03 07:57 | ER Document Report ---
HPI - HPI Patient complains to provider of: Left knee injury Onset: Yesterday - Night Onset/Duration: Sudden Quality of pain: Throbbing Pain Level: 4 Context: 21-year-old female hit the corner of the [employer] TV last night with her medial left knee while doing a backward roll while intoxicated. She went to work at [employer] at 4 AM and had a limp on her left leg because of pain medial left knee. She feels like it swollen. Associated Symptoms: None Exacerbated by: Movement, Walking Relieved by: Denies Similar symptoms previously: No Recently seen / treated by doctor: No - ROS ROS below otherwise negative: Yes Systems Reviewed and Negative: Yes All other systems reviewed and negative - REPRODUCTIVE LMP: 02/08/17 Reproductive: DENIES: : Past Medical History - General Information source: Patient - Social History Smoking Status: Never Smoker Frequency of alcohol use: Occasional Drug Abuse: None Lives with: Family Family History: None Patient has suicidal ideation: No Patient has homicidal ideation: No Neurological Medical History: Reports: Hx Migraine - chronic MCINTOSH "yrs" Renal/ Medical History: Denies: Hx Peritoneal Dialysis Musculoskeltal Medical History: Reports Hx Musculoskeletal Trauma Surgical Hx: Negative - Immunizations Immunizations up to date: Yes Hx Diphtheria, Pertussis, Tetanus Vaccination: Yes Vertical Provider Document - CONSTITUTIONAL Agree With Documented VS: Yes Exam Limitations: No Limitations - INFECTION CONTROL TRAVEL OUTSIDE OF THE [place] IN LAST 30 DAYS: No - HEENT HEENT: Normocephalic - NECK Neck: Supple - RESPIRATORY O2 Sat by Pulse Oximetry: 100 - MUSCULOSKELETAL/EXTREMETIES Musculoskeletal/Extremeties: MAEW, FROM, Tender - Medial superior left knee adjacent to the patella. negative: Edema, Eccymosis - NEURO Level of Consciousness: Awake, Alert, Appropriate Motor/Sensory: No Motor Deficit, No Sensory Deficit - DERM Integumentary: Warm, Dry Course - Re-evaluation Re-evalutation: 03/03/17 09:00 X-rays negative per radiologist - Vital Signs Vital signs: Temp Pulse Resp BP Pulse Ox 98.4 F 84 14 130/65 H 100 03/03/17 07:25 03/03/17 07:25 03/03/17 07:25 03/03/17 07:25 03/03/17 07:25 Procedures - Immobilization Left Knee Time completed: 09:01 Pre-Proc Neuro Vasc Exam: Normal Immobilizer type: Wili wrap Performed by: RN Post-Proc Neuro Vasc Exam: Normal Alignment checked and good: Yes Discharge - Discharge Clinical Impression: Left medial knee contusion Condition: Good Disposition: HOME, SELF-CARE Instructions: Acetaminophen, Anti-Inflammatory Medication ([facility]), Use of Crutches ([facility]), Ice & Elevation ([facility]) Additional Instructions: See orthopedic doctor if persists elevate and ice Motrin and Tylenol for discomfort Please complete the patient satisfaction survey if you get one, and return it.. If you do not receive a survey, then you can go to the [facility] website, [email or web address] and place your comments about your very good care. Thank you very much. It was a pleasure being your medical provider today. Prescriptions: Ibuprofen [Motrin 800 mg Tablet] 800 mg PO Q8HP PRN #30 tablet PRN Reason: Forms: Return to Work
--- NOTE | 2017-03-03 08:29 | RADIOLOGY REPORT (SQ) ---
EXAM DESCRIPTION: KNEE LEFT 4 VIEW COMPLETED DATE/TIME: 03/03/2017 8:08 am REASON FOR STUDY: contused last night COMPARISON: 12/15/2012. NUMBER OF VIEWS: Four views. TECHNIQUE: AP, lateral, and both oblique radiographic images acquired of the left knee. LIMITATIONS: None. FINDINGS: MINERALIZATION: Normal. BONES: No acute fracture or dislocation. No worrisome bone lesions. JOINT: No effusion. SOFT TISSUES: No soft tissue swelling. No radio-opaque foreign body. OTHER: No other significant finding. IMPRESSION: NEGATIVE STUDY OF THE LEFT KNEE. NO RADIOGRAPHIC EVIDENCE OF ACUTE INJURY. TECHNICAL DOCUMENTATION: JOB ID: [id number] [email or web address]- All Rights Reserved
[2017-03-03 09:19] VITALS: BP 130/60
== END 2017-03-03 09:19 | disposition home or self-care (01) ==
LOC: ER 07:22
DX: S80.02XA Contusion of left knee, initial encounter (principal); M79.605 Pain in left leg; M25.562 Pain in left knee; X58.XXXA Exposure to other specified factors, initial encounter
CPT/HCPCS: 99283

== ENCOUNTER 2017-11-10 09:40 | Emergency (ER) | payer MEDICAID ==
[2017-11-10 09:59] VITALS: BP 134/48
[2017-11-10] MEDS ORDERED: PENICILLIN V POTASSIUM 500 MG TABLET PO ONE (10:03)
[2017-11-10] MEDS ORDERED: LIDOCAINE 2% VISCOUS SOLN 20 ML UDCUP PO ONE (10:03)
--- NOTE | 2017-11-10 10:09 | ER Document Report ---
ED Oral Problem - General Chief Complaint: Toothache Stated Complaint: TOOTHACHE Time Seen by Provider: 11/10/17 09:57 Mode of Arrival: Ambulatory Information source: Patient Notes: A 22-year-old female presents to ED for dental pain to the tooth #17 and 18 causing pain to go down her jaw and of her head into her ear. There is no otitis media no signs of infection. Patient is alert oriented pupils equal react light speaks with even full sentences. Walks with a even steady gait. Patient states the headache and the earache she thinks is from the Tuesday. TRAVEL OUTSIDE OF THE [place] IN LAST 30 DAYS: No - HPI Patient complains to provider of: Toothache - Causing pain to the head jaw and ear Onset: Other - 2 weeks Onset: Gradual Quality of pain: Sharp, Throbbing Severity: Severe Pain Level: 5 Associated symptoms: Toothache Worsened by: Cold Relieved by: Nothing Similar symptoms previously: Yes Recently seen / treated by doctor/dentist: No - Related Data Allergies/Adverse Reactions: No Known Allergies Allergy (Verified 11/10/17 09:42) Past Medical History - General Information source: Patient - Social History Smoking Status: Never Smoker Cigarette use (# per day): No Chew tobacco use (# tins/day): No Frequency of alcohol use: None Drug Abuse: None Occupation: [employer] Lives with: Alone Family History: None Patient has suicidal ideation: No Patient has homicidal ideation: No - Past Medical History Cardiac Medical History: Reports: None Pulmonary Medical History: Reports: None EENT Medical History: Reports: None Neurological Medical History: Reports: Hx Migraine - chronic MCINTOSH "yrs" Endocrine Medical History: Reports: None Renal/ Medical History: Reports: None Malignancy Medical History: Reports: None GI Medical History: Reports: None Musculoskeltal Medical History: Reports Hx Musculoskeletal Trauma Skin Medical History: Reports None Psychiatric Medical History: Reports: None Traumatic Medical History: Reports: None Infectious Medical History: Reports: None Surgical Hx: Negative Past Surgical History: Reports: None - Immunizations Immunizations up to date: Yes Hx Diphtheria, Pertussis, Tetanus Vaccination: Yes Review of Systems - Review of Systems Constitutional: No symptoms reported EENT: Ear pain, Dental problem Cardiovascular: No symptoms reported Respiratory: No symptoms reported Gastrointestinal: No symptoms reported Genitourinary: No symptoms reported Female Genitourinary: No symptoms reported Musculoskeletal: No symptoms reported Skin: No symptoms reported Hematologic/Lymphatic: No symptoms reported Neurological/Psychological: Headaches -: Yes All other systems reviewed and negative Physical Exam - Vital signs Vitals: Temp Pulse Resp BP Pulse Ox 98.1 F 78 16 134/48 H 100 11/10/17 09:54 11/10/17 09:54 11/10/17 09:54 11/10/17 09:54 11/10/17 09:54 Interpretation: Normal - General General appearance: Appears well, Alert - HEENT Head: Normocephalic, Atraumatic Eyes: Normal Pupils: PERRL Visual cruz normal: Yes Ears: Normal External canal: Normal Tympanic membrane: Normal Sinus: Normal Nasal: Normal Mouth/Lips: Caries Teeth diagram: 1 - Pain and tenderness minimal swelling Pharynx: Normal - Respiratory Respiratory status: No respiratory distress Chest status: Nontender Breath sounds: Normal Chest palpation: Normal - Cardiovascular Rhythm: Regular Heart sounds: Normal auscultation Murmur: No - Abdominal Inspection: Normal Distension: No distension Bowel sounds: Normal Tenderness: Nontender Organomegaly: No organomegaly - Back Back: Normal, Nontender - Extremities General upper extremity: Normal inspection, Nontender, Normal color, Normal ROM , Normal temperature General lower extremity: Normal inspection, Nontender, Normal color, Normal ROM , Normal temperature, Normal weight bearing. No: Ruthie's sign - Neurological Neuro grossly intact: Yes Cognition: Normal Orientation: AAOx4 Morrison Coma Scale Eye Opening: Spontaneous Jeanine Coma Scale Verbal: Oriented Morrison Coma Scale Motor: Obeys Commands Jeanine Coma Scale Total: 15 Speech: Normal Motor strength normal: LUE, RUE, LLE, RLE Sensory: Normal - Psychological Associated symptoms: Normal affect, Normal mood - Skin Skin Temperature: Warm Skin Moisture: Dry Skin Color: Normal Course - Re-evaluation Re-evalutation: 11/10/17 10:11 She was treated with Penicillin VK and viscous lidocaine for her dental pain. After performing a Medical Screening Examination, I estimate there is LOW risk for a DEEP SPACE INFECTION (e.g., AURORA'S ANGINA OR RETROPHARYNGEAL ABSCESS), MENINGITIS, INTRACRANIAL HEMORRHAGE, or AIRWAY COMPROMISE, thus I consider the discharge disposition reasonable. Also, there is no evidence or peritonitis, sepsis, or toxicity. I have reevaluated this patient multiple times and no significant life threatening changes are noted. The patient and I have discussed the diagnosis and risks, and we agree with discharging home with close follow-up with the understanding that symptoms and presentations can change. We also discussed returning to the Emergency Department immediately if new or worsening symptoms occur. We have discussed the symptoms which are most concerning (e.g., changing or worsening pain, trouble swallowing or breathing, neck stiffness or fever) that necessitate immediate return. - Vital Signs Vital signs: Temp Pulse Resp BP Pulse Ox 98.1 F 78 16 134/48 H 100 11/10/17 09:54 11/10/17 09:54 11/10/17 09:54 11/10/17 09:54 11/10/17 09:54 Discharge - Discharge Clinical Impression: Pain due to dental caries, Otalgia of left ear Headache Qualifiers: Headache type: unspecified Headache chronicity pattern: unspecified pattern Intractability: not intractable Qualified Code(s): R51 - Headache HTN (hypertension) Qualifiers: Hypertension type: unspecified Qualified Code(s): I10 - Essential (primary) hypertension Condition: Good Disposition: HOME, SELF-CARE Instructions: Acetaminophen, Use of [id number] Ibuprofen ([facility]) Additional Instructions: TOOTHACHE: Your pain is due to dental decay. The tooth must be repaired in order for you to feel better. You will, therefore, be referred to a dentist. We do not have dentists on the staff at [facility]. Severe swelling or drainage around a tooth usually means a dental abscess. This also requires evaluation and treatment by the dentist, but antibiotics may be prescribed while awaiting dental treatment. You should be rechecked immediately if you develop major swelling of the face, increasing pain, a lump in the jaw or gums, headache, difficulty swallowing, or fever. You have been given a syringe of viscous lidocaine. It is in a syringe please place a small amount on your finger and apply it to the sore tooth and gums 2-3 hours as needed for pain. Salt and soda solution 1 quart of water 1 tablespoon of salt 1 teaspoon of baking soda Mixed 3 ingredients together and boil for 1 minute Placed in a covered quart jar Use 1/2 ounce of cold solution to gargle 3 times a day PENICILLIN V K: You have been given a prescription for Penicillin VK. Your physician has determined that this is the best antibiotic for your condition. Pen VK can be taken with meals, however more of the antibiotic gets into the bloodstream if it's taken on an empty stomach. Penicillin usually has no side effects. However, allergy to penicillins is common. If you have had an allergic reaction to any drug of the penicillin family, you should never take any other penicillin. Notify your doctor at once if you develop hives, itching, swelling, faintness, or shortness of breath. FOLLOW-UP CARE: You have been referred for follow-up care to the dentists listed below. Call the dentists office for an appointment as you were instructed or within the next two days. If you experience worsening or a significant change in your symptoms, notify the physician immediately or return to the Emergency Department at any time for re-evaluation. [facility] [address] [place], [place] [facility] [address] [place] [address] Formerly [facility] [address] [facility] [address] [facility] ([facility]) [facility] [address] [email or web address] [address] [place] [address] Tuesday- 8:00am to 5:00 pm Will see patients from other [facility]. Charges based on income and family size and accepts Medicare, Medicaid, and Insurances Will pull molars [facility] [address] Hours of Operation 8:00 am - 4:30 pm weekdays The following dental offices accept Medicaid: [facility] Dr. Walters Dr. Schuster Dr. Gomez Dr. Hodges Ruel [place], [place], and [place] oral surgery Dr. Joyce ([place]) Dr. Bagley ([place]) [facility] Drs. Kaiser ([place]) Dr. Wetzel ([place]) [facility] Dr. Buck ([place]) Drs. Stafford and ([place]) Medicaid Care Line Prescriptions: Penicillin V Potassium [Penicillin Vk 500 mg Tablet] 500 mg PO BID #20 tablet Forms: Elevated Blood Pressure, Return to Work
== END 2017-11-10 10:21 | disposition home or self-care (01) ==
LOC: ER 09:40
DX: K02.9 Dental caries, unspecified (principal); K08.89 Other specified disorders of teeth and supporting structures; R51 Headache; R68.84 Jaw pain; H92.02 Otalgia, left ear; I10 Essential (primary) hypertension
CPT/HCPCS: 99282; J3490 ×2

== ENCOUNTER 2018-05-17 05:05 | Emergency (ER) | payer SELFPAY ==
[2018-05-17 05:48] LABS: APPEARANCE,URINE SLIGHTLY-CLOUDY; BILIRUBIN,URINE NEGATIVE (NEGATIVE); COLOR,URINE YELLOW; GLUCOSE, URINE NEGATIVE (NEGATIVE); KETONES,URINE NEGATIVE (NEGATIVE); LEUKOCYTE ESTERASE,URINE NEGATIVE (NEGATIVE); NITRITE,URINE NEGATIVE (NEGATIVE); PROTEIN,URINE NEGATIVE (NEGATIVE); URINE SPECIFIC GRAVITY 1.033
--- NOTE | 2018-05-17 05:55 | ER Document Report ---
ED Medical Screen (RME) - General Chief Complaint: Abdominal Pain Stated Complaint: ABDOMINAL PAIN Time Seen by Provider: 05/17/18 05:16 Mode of Arrival: Ambulatory Information source: Patient Notes: Patient is a 23-year-old female who presents to the emergency department with complaint of low abdominal pain, low back pain and urinary frequency. She denies any dysuria or urgency. Patient states that she may have a urinary tract infection. Exam: Tenderness to palpation over suprapubic area. No CVA tenderness. I have greeted and performed a rapid initial assessment of this patient. A comprehensive ED assessment and evaluation of the patient, analysis of test results and completion of the medical decision making process will be conducted by additional ED providers. Dictation of this chart was performed using voice recognition software; therefore, there may be some unintended grammatical errors. TRAVEL OUTSIDE OF THE [place] IN LAST 30 DAYS: No - Related Data Allergies/Adverse Reactions: No Known Allergies Allergy (Verified 11/10/17 09:42) Past Medical History Neurological Medical History: Reports: Hx Migraine - chronic MCINTOSH "yrs" Renal/ Medical History: Denies: Hx Peritoneal Dialysis Musculoskeltal Medical History: Reports Hx Musculoskeletal Trauma - Immunizations Immunizations up to date: Yes Hx Diphtheria, Pertussis, Tetanus Vaccination: Yes Physical Exam - Vital signs Vitals: Temp Pulse Resp BP Pulse Ox 98.8 F 80 16 121/68 100 05/17/18 05:10 05/17/18 05:10 05/17/18 05:10 05/17/18 05:10 05/17/18 05:10 Course - Vital Signs Vital signs: Temp Pulse Resp BP Pulse Ox 98.8 F 80 16 121/68 100 05/17/18 05:10 05/17/18 05:10 05/17/18 05:10 05/17/18 05:10 05/17/18 05:10 - Laboratory Laboratory results interpreted by me: 05/17/18 05:20 Urine Urobilinogen 2.0 H Urine Ascorbic Acid 20 H
--- NOTE | 2018-05-17 06:29 | ER Document Report ---
ED GI/ - General Mode of Arrival: Ambulatory Information source: Patient TRAVEL OUTSIDE OF THE [place] IN LAST 30 DAYS: No <DARY GROSS - Last Filed: 05/17/18 07:15> <PAMELA JIMENEZ - Last Filed: 05/17/18 07:30> - General Chief Complaint: Abdominal Pain Stated Complaint: ABDOMINAL PAIN Time Seen by Provider: 05/17/18 05:16 Notes: 23-year-old female who presents to the emergency department today with abdominal pain described as "above the vaginal area" and back pain when she "breathes". Patient states that the other day she "could not have a bowel movement due to the pain" when she bears down. Patient does mention that her back hurts when she turns or twists as well. Patient states her last menstrual period was at the beginning of April. Patient denies any vaginal discharge. (DARY GROSS) - Related Data Allergies/Adverse Reactions: No Known Allergies Allergy (Verified 11/10/17 09:42) Past Medical History - General Information source: Patient - Social History Smoking Status: Unknown if Ever Smoked Cigarette use (# per day): No Frequency of alcohol use: None Drug Abuse: None Occupation: [employer]: Family Family History: None Patient has suicidal ideation: No Patient has homicidal ideation: No Neurological Medical History: Reports: Hx Migraine - chronic MCINTOSH "yrs" Musculoskeletal Medical History: Reports Hx Musculoskeletal Trauma Surgical Hx: Negative - Immunizations Immunizations up to date: Yes Hx Diphtheria, Pertussis, Tetanus Vaccination: Yes <DARY GROSS - Last Filed: 05/17/18 07:15> Review of Systems - Review of Systems Constitutional: No symptoms reported EENT: No symptoms reported Cardiovascular: No symptoms reported Respiratory: No symptoms reported Gastrointestinal: No symptoms reported Genitourinary: See HPI, Pain, Other - lower abdomen pain/pressure Female Genitourinary: denies: Vaginal discharge Musculoskeletal: See HPI, Back pain Skin: No symptoms reported Hematologic/Lymphatic: No symptoms reported Neurological/Psychological: No symptoms reported -: Yes All other systems reviewed and negative <DARY GROSS - Last Filed: 05/17/18 07:15> Physical Exam <DARY GROSS - Last Filed: 05/17/18 07:15> <PAMELA JIMENEZ - Last Filed: 05/17/18 07:30> - Vital signs Vitals: Temp Pulse Resp BP Pulse Ox 98.8 F 80 16 121/68 100 05/17/18 05:10 05/17/18 05:10 05/17/18 05:10 05/17/18 05:10 05/17/18 05:10 - Notes Notes: Physical Exam: General: Alert, appears well. HEENT: Normocephalic. Atraumatic. PERRL. Extraocular movements intact. Oropharynx clear. Neck: Supple. Non-tender. Respiratory: No respiratory distress. Rhonchi with forced cough bilaterally. Cardiovascular: Regular rate and rhythm. Abdominal: Diffuse tenderness with palpation, increasing tenderness over the suprapubic area. No distension. Normal Bowel Sounds. Back: Lower thoracic and lumbar spine tenderness with palpation. No deformity or step off. Extremities: Moves all four extremities. Upper extremities: Normal inspection. Normal ROM. Lower extremities: Normal inspection. No edema. Normal ROM. Neurological: Normal cognition. AAOx4. Normal speech. Psychological: Normal affect. Normal Mood. Skin: Warm. Dry. Normal color. (DARY GROSS) Course - Laboratory Result Diagrams: 05/17/18 06:41 <DARY GROSS - Last Filed: 05/17/18 07:15> - Laboratory Result Diagrams: 05/17/18 06:41 <PAMELA JIMENEZ - Last Filed: 05/17/18 07:30> - Vital Signs Vital signs: Temp Pulse Resp BP Pulse Ox 98.8 F 80 16 121/68 100 05/17/18 05:10 05/17/18 05:10 05/17/18 05:10 05/17/18 05:10 05/17/18 05:10 - Laboratory Laboratory results interpreted by nd: 05/17/18 05/17/18 05:20 06:41 Hgb 11.2 L Hct 35.5 L MCV 71 L MCH 22.4 L MCHC 31.7 L RDW 15.5 H Urine Urobilinogen 2.0 H Urine Ascorbic Acid 20 H Discharge <DARY GROSS - Last Filed: 05/17/18 07:15> <PAMELA JIMENEZ - Last Filed: 05/17/18 07:30> - Discharge Clinical Impression: Pelvic pain, Flank pain Condition: Stable Disposition: HOME, SELF-CARE Additional Instructions: Pelvic Pain There are many causes of pain in the pelvic area. The cause could be the tubes, ovaries, uterus, intestines, appendix, pelvic muscles and connective tissue, or the urinary tract. The cause of your pelvic pain is not clear. However, it seems safe to treat you outside the hospital. If the pain sounds like a temporary problem, we sometimes wait to see if it goes away. Other patients may need additional tests, such as pelvic ultrasound or cultures. Conditions may change. Call us or come back for reexamination if any problems occur, such as: (1) Pain that becomes more severe, steady, or becomes concentrated in one specific area. Also, pain that is more severe with movement or coughing. (2) Vomiting that persists or becomes more frequent. (3) Blood in the vomitus, urine, or bowel movements. Blood in the stool may have a tarry or black appearance. (4) Shaking chills or fever greater than 100 degrees. (5) The abdomen becomes more distended or swollen. (6) Bowel movements cease. (7) Heavy vaginal bleeding. Take the medications as prescribed. Take ibuprofen 800 mg every 8 hours or Aleve 2 tablets every 12 hours for pelvic inflammation pain. Drink plenty of fluids. Follow-up with a local primary care provider or with [facility] if not improving. RETURN TO THE EMERGENCY ROOM IF ANY NEW OR WORSENING SYMPTOMS. Prescriptions: Doxycycline Hyclate 100 mg PO BID #20 tablet. Referrals: [facility] [Provider Group] - Follow up as needed Scribe Attestation: 05/17/18 06:34 I personally performed the services described in the documentation, reviewed and edited the documentation which was dictated to the scribe in my presence, and it accurately records my words and actions. (PAMELA JIMENEZ) Scribe Documentation - Scribe Written by Scribe:: Sandro Romero, 05/17/2018 0724 acting as scribe for :: Elizabeth <DARY GROSS - Last Filed: 05/17/18 07:15>
[2018-05-17 06:50] LABS: ABSOLUTE BASOPHILS # (AUTO) 0.1 10^3/uL (0.0-0.2); ABSOLUTE EOSINOPHILS # (AUTO) 0.2 10^3/uL (0.0-0.6); ABSOLUTE LYMPHOCYTES (AUTO) 1.7 10^3/uL (0.5-4.7); ABSOLUTE MONOCYTES (AUTO) 0.4 10^3/uL (0.1-1.4); ABSOLUTE NEUT (AUTO) 2.9 10^3/uL (1.7-8.2); BASOPHILS % (AUTO) 1.3 % (0-2); EOSINOPHILS % (AUTO) 4.2 % (0-6); HEMATOCRIT 35.5 % (36.0-47.0); HEMOGLOBIN 11.2 g/dL (12.0-15.5); LYMPHOCYTES % (AUTO) 31.9 % (13-45); MEAN CORPUSCULAR HEMOGLOBIN 22.4 pg (27.0-33.4); MEAN CORPUSCULAR HGB CONC 31.7 g/dL (32.0-36.0); MEAN CORPUSCULAR VOLUME 71 fl (80-97); MONOCYTES % (AUTO) 7.9 % (3-13); PLATELET COUNT 211 10^3/uL (150-450); RED BLOOD COUNT 5.01 10^6/uL (3.72-5.28); RED CELL DISTRIBUTION WIDTH 15.5 % (11.5-14.0); SEGMENTED NEUTROPHILS % (AUTO) 54.7 % (42-78); TOTAL CELLS COUNTED % (AUTO) 100 %; WHITE BLOOD COUNT 5.3 10^3/uL (4.0-10.5)
[2018-05-17] MEDS ORDERED: DOXYCYCLINE HYCLATE 100 MG TABLET PO ONE (07:31)
[2018-05-17 07:41] VITALS: BP 122/70
[2018-05-17 08:53] LABS: CHLAM PCR DETECTED (NOT DETECT); GON PCR NOT DETECTED (NOT DETECT)
== END 2018-05-17 07:41 | disposition home or self-care (01) ==
LOC: ER 05:05
DX: R10.2 Pelvic and perineal pain (principal); R10.9 Unspecified abdominal pain; R10.817 Generalized abdominal tenderness; M54.9 Dorsalgia, unspecified
CPT/HCPCS: 36415; 81001; 81025; 85025; 87491; 87591; 99284

== ENCOUNTER 2018-08-13 00:36 | Emergency (ER) | payer SELFPAY ==
[2018-08-13 01:07] VITALS: BP 131/84
--- NOTE | 2018-08-13 01:43 | ER Document Report ---
ED General - General Chief Complaint: Sore Throat Stated Complaint: SORE THROAT Time Seen by Provider: 08/13/18 01:11 Notes: Patient is a 23-year-old female presents with complaint of runny nose cough and congestion. Said congestion just started last 24 hours. She said sore throat and coughing for the last 3 days. No fevers. No vomiting. No diarrhea. She has not taken anything [id number] for her symptoms other than Tylenol. Has no chronic medical problems. She does not smoke. She is otherwise healthy. TRAVEL OUTSIDE OF THE [place] IN LAST 30 DAYS: No - Related Data Allergies/Adverse Reactions: No Known Allergies Allergy (Verified 05/17/18 07:30) Past Medical History - Social History Smoking Status: Unknown if Ever Smoked Frequency of alcohol use: None Drug Abuse: None Family History: None Patient has suicidal ideation: No Patient has homicidal ideation: No Neurological Medical History: Reports: Hx Migraine - chronic MCINTOSH "yrs" Renal/ Medical History: Denies: Hx Peritoneal Dialysis Musculoskeletal Medical History: Reports Hx Musculoskeletal Trauma - Immunizations Immunizations up to date: Yes Hx Diphtheria, Pertussis, Tetanus Vaccination: Yes Review of Systems - Review of Systems Notes: My Normal Review Basic REVIEW OF SYSTEMS: CONSTITUTIONAL : Denies fever, chills, or sweats. EENT: Congestion. Sore throat. RESPIRATORY: recurring cough GASTROINTESTINAL: Denies abdominal pain. Denies nausea, vomiting, or diarrhea. MUSCULOSKELETAL: Denies neck or back pain or joint pain or swelling. SKIN: Denies rash or skin lesions. NEUROLOGICAL: Denies altered mental status or loss of consciousness. Denies headache. ALL OTHER SYSTEMS REVIEWED AND NEGATIVE. Physical Exam - Vital signs Vitals: Temp Pulse Resp BP Pulse Ox 98.5 F 82 17 131/84 H 98 08/13/18 01:07 08/13/18 01:07 08/13/18 01:07 08/13/18 01:07 08/13/18 01:07 - Notes Notes: General Appearance: Well nourished, alert, cooperative, no acute distress, no obvious discomfort. Cough on exam. Vitals: reviewed, See vital signs table. Eyes: PERRL, EOMI, Conjuctiva clear Mouth: No decreasd moisture Throat: Erythematous tonsils. Slightly enlarged tonsils. No exudates. Lungs: No wheezing, No rales, No rhonci, No accessory muscle use, good air exchange bilaterally. Heart: Normal rate, Regular rythm, No murmur, no rub Extremities: good pulses in all extremities Skin: warm, dry, appropriate color, no rash Neuro: speech clear, oriented x 3, normal affect, responds appropriately to questions. Course - Re-evaluation Re-evalutation: 08/13/18 02:23 Patient did have pharyngeal erythema and some tonsil enlargement. I did do a strep swab which is negative. Suspect she probably has a viral pharyngitis with cough. I have given a dose of Decadron due to the swelling in her pharynx. She has no stridor. She is breathing normally. She has no distress. She is handling secretions without difficulty. She has no signs of impending airway compromise. I encouraged her to take Tylenol Motrin for pain. I informed her of her culture swab grows out anything positive we will call her with results and call in antibiotic. I encouraged her return to ER if she has difficulty breathing, difficulty swallowing, fevers, or if she feels that she is worsening. Patient agrees with plan and will be discharged home. Dictation of this chart was performed using voice recognition software; therefore, there may be some unintended grammatical errors. - Vital Signs Vital signs: Temp Pulse Resp BP Pulse Ox 98.5 F 82 17 131/84 H 98 08/13/18 01:07 08/13/18 01:07 08/13/18 01:07 08/13/18 01:07 08/13/18 01:07 Discharge - Discharge Clinical Impression: Pharyngitis Qualifiers: Pharyngitis/tonsillitis etiology: unspecified etiology Qualified Code(s): J02.9 - Acute pharyngitis, unspecified Condition: Good Disposition: HOME, SELF-CARE Additional Instructions: You have what appears to be pharyngitis. This is inflammation of the throat that is usually related to a virus. Currently your swab looking for bacterial causes is negative. It will be sent for culture. If it grows out any bacteria in the next 2 days we will call you to call in a prescription for an antibiotic. We have given you a dose of a steroid which will help with your inflammation and pain in your throat. Please drink cold liquids. Please take Tylenol and Motrin for inflammation and pain. Please return to ER if you have difficulty breathing, fevers, or feel that you are worsening. Follow-up with your doctor in 2-3 days for reevaluation. Forms: Return to Work
[2018-08-13] MEDS ORDERED: DEXAMETHASONE SOD PHOS INJ 10 MG/1 ML VIAL IM ONE (02:17)
== END 2018-08-13 02:35 | disposition home or self-care (01) ==
LOC: ER 00:36
DX: J02.9 Acute pharyngitis, unspecified (principal); R09.89 Other specified symptoms and signs involving the circulatory and respiratory systems; R05 Cough; R09.81 Nasal congestion
CPT/HCPCS: 99282; 96372; 87070; 87880; 87077; J1100

== ENCOUNTER 2018-09-11 08:28 | Emergency (ER) | payer MEDICAID ==
[2018-09-11] MEDS ORDERED: ACETAMINOPHEN 325 MG TABLET PO ONE (08:54)
--- NOTE | 2018-09-11 08:56 | ER Document Report ---
ED Medical Screen (RME) - General Chief Complaint: Abdominal Cramping Stated Complaint: BACK PAIN, ABDOMINAL CRAMPING Time Seen by Provider: 09/11/18 08:35 Mode of Arrival: Ambulatory Information source: Patient Notes: Patient presents emergency department with complaints of abdominal pain excessive cramping for the past 2 weeks. She reports the cramping radiates to her back. Patient also reports a headache and some nausea. She reports lately the pain is worse so she came to the emergency department. She reports she is sexually active no control denies vaginal discharge denies pain with void. Possible reports decreased appetite but drinking okay. She has not taken anything for the pain reports she just felt like she was going to try to ride it out. I have greeted and performed a rapid initial assessment of this patient. A comprehensive ED assessment and evaluation of the patient, analysis of test results and completion of the medical decision making process will be conducted by additional ED providers. TRAVEL OUTSIDE OF THE [place] IN LAST 30 DAYS: No - Related Data Allergies/Adverse Reactions: No Known Allergies Allergy (Verified 09/11/18 08:31) Past Medical History Neurological Medical History: Reports: Hx Migraine - chronic MCINTOSH "yrs" Renal/ Medical History: Denies: Hx Peritoneal Dialysis Musculoskeltal Medical History: Reports Hx Musculoskeletal Trauma - Immunizations Immunizations up to date: Yes Hx Diphtheria, Pertussis, Tetanus Vaccination: Yes
[2018-09-11 09:54] LABS: ABSOLUTE EOSINOPHILS # (AUTO) 0.1 10^3/uL (0.0-0.6); ABSOLUTE LYMPHOCYTES (AUTO) 1.9 10^3/uL (0.5-4.7); ABSOLUTE MONOCYTES (AUTO) 0.3 10^3/uL (0.1-1.4); ABSOLUTE NEUT (AUTO) 2.7 10^3/uL (1.7-8.2); BASOPHILS % (AUTO) 0.5 % (0-2); EOSINOPHILS % (AUTO) 2.2 % (0-6); HEMATOCRIT 34.7 % (36.0-47.0); LYMPHOCYTES % (AUTO) 36.8 % (13-45); MEAN CORPUSCULAR HEMOGLOBIN 21.8 pg (27.0-33.4); MEAN CORPUSCULAR HGB CONC 31.6 g/dL (32.0-36.0); MEAN CORPUSCULAR VOLUME 69 fl (80-97); MONOCYTES % (AUTO) 6.4 % (3-13); PLATELET COUNT 260 10^3/uL (150-450); RED BLOOD COUNT 5.02 10^6/uL (3.72-5.28); RED CELL DISTRIBUTION WIDTH 16.1 % (11.5-14.0); SEGMENTED NEUTROPHILS % (AUTO) 54.1 % (42-78); TOTAL CELLS COUNTED % (AUTO) 100 %; WHITE BLOOD COUNT 5.1 10^3/uL (4.0-10.5)
[2018-09-11 10:02] LABS: APPEARANCE,URINE SLIGHTLY-CLOUDY; BILIRUBIN,URINE NEGATIVE (NEGATIVE); COLOR,URINE YELLOW; GLUCOSE, URINE NEGATIVE (NEGATIVE); KETONES,URINE TRACE mg/dL (NEGATIVE); LEUKOCYTE ESTERASE,URINE TRACE (NEGATIVE); NITRITE,URINE NEGATIVE (NEGATIVE); PROTEIN,URINE NEGATIVE (NEGATIVE); URINE SPECIFIC GRAVITY 1.028; UROBILINOGEN,URINE NEGATIVE mg/dL (<2.0)
[2018-09-11 10:09] LABS: ALANINE AMINOTRANSFERASE 22 U/L (9-52); ALBUMIN 4.8 g/dL (3.5-5.0); ALKALINE PHOSPHATASE 56 U/L (38-126); ANION GAP 12 (5-19); ASPARTATE AMINO TRANSFERASE 19 U/L (14-36); BILIRUBIN,DIRECT 0.3 mg/dL (0.0-0.4); BILIRUBIN,TOTAL 0.5 mg/dL (0.2-1.3); BLOOD UREA NITROGEN 12 mg/dL (7-20); CALCIUM 9.6 mg/dL (8.4-10.2); CARBON DIOXIDE 23 mmol/L (22-30); CHLORIDE 104 mmol/L (98-107); GLUCOSE 82 mg/dL (75-110); LIPASE 86.5 U/L (23-300); POTASSIUM 3.8 mmol/L (3.6-5.0); SODIUM 139.4 mmol/L (137-145); TOTAL PROTEIN 8.4 g/dL (6.3-8.2)
--- NOTE | 2018-09-11 13:42 | RADIOLOGY REPORT (SQ) ---
EXAM DESCRIPTION: U/S OB TRANSVAGINAL W/O DOP COMPLETED DATE/TIME: 09/11/2018 1:29 pm REASON FOR STUDY: Pelvic cramps COMPARISON: None. TECHNIQUE: Transvaginal static and realtime grayscale images acquired of the pelvis. Additional roney cted spectral and color Doppler images recorded. All images stored on PACs. bHCG: Not available. CLINICAL DATES: LMP 08/15/2018 LIMITATIONS: None. FINDINGS: No intrauterine gestation is present at this time. UTERUS: No masses or anomalies. 9.8 x 5.5 x 6.2 cm. The endometrium measures 14 mm. CERVICAL LENGTH: 3.1 cm. Closed. RIGHT ADNEXA: Normal ovary with normal vascular flow. 3.3 x 1.6 x 1.6 cm. No adnexal free fluid. No adnexal masses. LEFT ADNEXA: Normal ovary with normal vascular flow. 4.6 x 2 x 4.2 cm. There are some small cysts. The largest measures 17 mm. No adnexal free fluid. No adnexal masses. FREE FLUID: None. OTHER: No other significant finding. IMPRESSION: There is no intrauterine at this time. Findings as described. Follow-up as c linically indicated. TECHNICAL DOCUMENTATION: JOB ID: [id number] [email or web address]- All Rights Reserved Reading location - IP/workstation name: [email or web address]
[2018-09-11 14:23] VITALS: BP 135/81
--- NOTE | 2018-09-11 14:28 | ER Document Report ---
Entered by DARY GROSS SCRIBE 09/11/18 1249 Acting as scribe for:PAMELA JIMENEZ MD ED GI/ - General Chief Complaint: Abdominal Cramping Stated Complaint: BACK PAIN, ABDOMINAL CRAMPING Time Seen by Provider: 09/11/18 08:35 Primary Care Provider: [facility] [Provider Group] - 09/13/18 (Today to schedule an appointment in 2 days.) Mode of Arrival: Ambulatory Information source: Patient Notes: 23-year-old female who presents to the emergency department today with complaints of lower abdominal cramping for the last two weeks. Patient states her last menstrual period was August 15. Patient states she does not know her blood type however she has delivered one child without ever getting RhoGam. Patient states she has a small amount of white vaginal discharge which is normal for her. Patient denies any vaginal bleeding. Patient states she received no relief with the Tylenol she was given in triage. Of note, the patient does admit to heavy alcohol abuse, stating she drinks around x1 pint of hard liquor daily. TRAVEL OUTSIDE OF THE [place] IN LAST 30 DAYS: No - Related Data Allergies/Adverse Reactions: No Known Allergies Allergy (Verified 09/11/18 08:31) Past Medical History - General Information source: Patient - Social History Smoking Status: Never Smoker Cigarette use (# per day): No Frequency of alcohol use: Heavy - 1pint of hard liquor a day Drug Abuse: None Lives with: Family Family History: None Patient has suicidal ideation: No Patient has homicidal ideation: No Neurological Medical History: Reports: Hx Migraine - chronic MCINTOSH "yrs" Musculoskeletal Medical History: Reports Hx Musculoskeletal Trauma Surgical Hx: Negative - Immunizations Immunizations up to date: Yes Hx Diphtheria, Pertussis, Tetanus Vaccination: Yes Review of Systems - Review of Systems Constitutional: No symptoms reported EENT: No symptoms reported Cardiovascular: No symptoms reported Respiratory: No symptoms reported Gastrointestinal: See HPI, Abdominal pain - lower abdominal cramping Genitourinary: See HPI, Discharge - white Female Genitourinary: See HPI, Last menstrual period - Aug 15, Vaginal discharge. denies: Vaginal bleeding Musculoskeletal: No symptoms reported Skin: No symptoms reported Hematologic/Lymphatic: No symptoms reported Neurological/Psychological: No symptoms reported -: Yes All other systems reviewed and negative Physical Exam - Vital signs Vitals: Temp Pulse Resp BP Pulse Ox 98.3 F 84 16 122/77 100 09/11/18 08:40 09/11/18 08:40 09/11/18 08:40 09/11/18 08:40 09/11/18 08:40 - Notes Notes: Physical Exam: General: Alert, appears well. HEENT: Normocephalic. Atraumatic. PERRL. Extraocular movements intact. Oropharynx clear. Neck: Supple. Non-tender. Respiratory: No respiratory distress. Clear and equal breath sounds bilaterally. Cardiovascular: Regular rate and rhythm. Abdominal: Very mild, diffuse lower abdominal tenderness with palpation. No distension. Normal Bowel Sounds. Back: Non-tender. No deformity or step off. Extremities: Moves all four extremities. Upper extremities: Normal inspection. Normal ROM. Lower extremities: Normal inspection. No edema. Normal ROM. Neurological: Normal cognition. AAOx4. Normal speech. Psychological: Normal affect. Normal Mood. Skin: Warm. Dry. Normal color. Course - Re-evaluation Re-evalutation: The serum hCG is 556. This would be in a normal range based on her LMP of 08/15/2018. The ultrasound does not show a , however she would be too early to see one. - Vital Signs Vital signs: Temp Pulse Resp BP Pulse Ox 98.3 F 84 16 122/77 100 09/11/18 08:40 09/11/18 08:40 09/11/18 08:40 09/11/18 08:40 09/11/18 08:40 - Laboratory Result Diagrams: 09/11/18 09:27 09/11/18 09:27 Laboratory results interpreted by me: 09/11/18 09/11/18 09/11/18 09:17 09:27 09:27 Hgb 11.0 L Hct 34.7 L MCV 69 L MCH 21.8 L MCHC 31.6 L RDW 16.1 H Total Protein 8.4 H Serum HCG, Qual Beta HCG, Quant Urine Ketones TRACE H Ur Leukocyte Esterase TRACE H 09/11/18 09/11/18 09:27 09:27 Hgb Hct MCV MCH MCHC RDW Total Protein Serum HCG, Qual POSITIVE H Beta HCG, Quant 565.96 H Urine Ketones Ur Leukocyte Esterase - Diagnostic Test Radiology reviewed: Reports reviewed - Transvaginal ultrasound does not show intrauterine or any other abnormality. Discharge - Discharge Clinical Impression: Pelvic cramping in antepartum period, Early stage of I personally performed the services described in the documentation, reviewed and edited the documentation which was dictated to the scribe in my presence, and it accurately records my words and actions.
== END 2018-09-11 14:23 | disposition home or self-care (01) ==
LOC: ER 08:28
DX: O26.891 Other specified pregnancy related conditions, first trimester (principal); R10.2 Pelvic and perineal pain; N89.8 Other specified noninflammatory disorders of vagina; O99.311 Alcohol use complicating pregnancy, first trimester; F10.10 Alcohol abuse, uncomplicated; Z3A.01 Less than 8 weeks gestation of pregnancy
CPT/HCPCS: 36415; 76817; 80053; 81001; 83690; 84702; 84703; 85025; 86900; 86901; 99284

== ENCOUNTER 2018-09-18 23:51 | Emergency (ER) | payer MEDICAID ==
[2018-09-19 00:27] VITALS: BP 121/71
--- NOTE | 2018-09-19 00:28 | ER Document Report ---
ED Medical Screen (RME) - General Chief Complaint: OB Problem (<20wks) Stated Complaint: CRAMPS,VAGINAL BLEEDING Time Seen by Provider: 09/19/18 00:26 Notes: 5 weeks with vaginal bleeding. Mild pelvic cramping noted I have greeted and performed a rapid initial assessment of this patient. A comprehensive ED assessment and evaluation of the patient, analysis of test results and completion of the medical decision making process will be conducted by additional ED providers. TRAVEL OUTSIDE OF THE [place] IN LAST 30 DAYS: No - Related Data Allergies/Adverse Reactions: No Known Allergies Allergy (Verified 09/11/18 08:31) Past Medical History Neurological Medical History: Reports: Hx Migraine - chronic MCINTOSH "yrs" Renal/ Medical History: Denies: Hx Peritoneal Dialysis Musculoskeltal Medical History: Reports Hx Musculoskeletal Trauma - Immunizations Immunizations up to date: Yes Hx Diphtheria, Pertussis, Tetanus Vaccination: Yes
== END 2018-09-19 01:12 | disposition left against medical advice (07) ==
LOC: ER 23:51
DX: O20.9 Hemorrhage in early pregnancy, unspecified (principal); Z3A.01 Less than 8 weeks gestation of pregnancy
CPT/HCPCS: 99281

== ENCOUNTER 2019-01-21 16:19 | Outpatient (CLI) | payer MEDICAID ==
[2019-01-21] MEDS ORDERED: NALBUPHINE HCL INJ 10 MG/1 ML AMPULE ONE ×2 (17:24→21:54)
[2019-01-21 17:54] LABS: APPEARANCE,URINE CLEAR; BILIRUBIN,URINE NEGATIVE (NEGATIVE); COLOR,URINE YELLOW; GLUCOSE, URINE NEGATIVE (NEGATIVE); KETONES,URINE NEGATIVE (NEGATIVE); LEUKOCYTE ESTERASE,URINE TRACE (NEGATIVE); NITRITE,URINE NEGATIVE (NEGATIVE); PROTEIN,URINE NEGATIVE (NEGATIVE); URINE SPECIFIC GRAVITY 1.023
[2019-01-21] MEDS ORDERED: NALBUPHINE HCL INJ 10 MG/1 ML AMPULE INJ ONE ×2 (18:00→22:00)
[2019-01-21 18:13] LABS: URINE AMPHETAMINES SCREEN NEGATIVE; URINE BARBITURATES SCREEN NEGATIVE; URINE BENZODIAZEPINES SCREEN NEGATIVE; URINE COCAINE SCREEN NEGATIVE; URINE MARIJUANA (THC) SCREEN NEGATIVE; URINE METHADONE SCREEN NEGATIVE; URINE PHENCYCLIDINE SCREEN NEGATIVE
[2019-01-21] MEDS ORDERED: TERBUTALINE SULFATE INJ/PF 1 MG/1 ML SDV ONE (20:03)
[2019-01-21] MEDS ORDERED: TERBUTALINE SULFATE INJ/PF 1 MG/1 ML SDV SUBCUT ONE (20:15)
[2019-01-21] MEDS ORDERED: PROMETHAZINE HCL INJ 25 MG/1 ML VIAL ONE (21:54)
[2019-01-21] MEDS ORDERED: PROMETHAZINE HCL INJ 25 MG/1 ML VIAL IV ONE (22:00)
[2019-01-21] MEDS ORDERED: LABETALOL HCL 200 MG TABLET PO ONE (22:30)
[2019-01-21] MEDS ORDERED: HYDROXYZINE PAMOATE 50 MG CAPSULE ONE (23:35)
--- NOTE | 2019-01-22 00:17 | RADIOLOGY REPORT (SQ) ---
CLINICAL HISTORY: 22 weeks bleeding and cramping COMPARISON: None. TECHNIQUE: US LIMITED on 01/21/2019 12:00 AM CDT FINDINGS: Single live intrauterine gestation is noted with a heart rate of 127 bpm. Presentation is breech. Cervix is closed measuring 3.3 cm Otherwise normal at 13.9 cm. Posterior placenta is unremarkable. Biparietal diameter measures 5.9 cm corresponding to 24 weeks zero days. Head circumference measures 22.5 cm corresponding to 24 weeks four days. Abdominal circumference measures 19.1 cm corresponding to 23 weeks six days. Femur length measures 4.2 cm corresponding to 23 weeks four days. IMPRESSION: Unremarkable study.
[2019-01-22 00:32] LABS: BACTERIA (WET MOUNT) 4+ BACTERIA SEEN; EPITHELIALS (WET MOUNT) 4+ EPITHELIALS SEEN; RBCS (WET MOUNT) NO RBCS SEEN; T.VAGINALIS (WET MOUNT) NO TRICHOMONAS SEEN; WBCS (WET MOUNT) 4+ WBCS SEEN; YEAST (WET MOUNT) NO YEAST SEEN
[2019-01-22] MEDS ORDERED: METRONIDAZOLE 500 MG/NS RTU 500 MG/100 ML RTUPB IV ONE (01:24)
[2019-01-22] MEDS ORDERED: METRONIDAZOLE 500 MG/NS RTU 500 MG/100 ML RTUPB IV PRN (01:40)
[2019-01-22 01:56] LABS: CHLAM PCR NOT DETECTED (NOT DETECT)
== END 2019-01-22 02:49 | disposition home or self-care (01) ==
LOC: LC 16:19
PROVIDERS: ATTEND Obstetrics & Gynecology
PROC: 4A1HXCZ Monitoring of Products of Conception, Cardiac Rate, External Approach (ICD-10-PCS; principal; 2019-01-21)
DX: O46.92 Antepartum hemorrhage, unspecified, second trimester (principal); O23.592 Infection of other part of genital tract in pregnancy, second trimester; B96.89 Other specified bacterial agents as the cause of diseases classified elsewhere; Z3A.22 22 weeks gestation of pregnancy
CPT/HCPCS: 59899; 87210; 81001; 80307; 87491; 87591; 76815; J3490; J2300; J2550; J3105

== ENCOUNTER 2019-05-10 08:53 | Outpatient (CLI) | payer MEDICAID ==
[2019-05-10] MEDS ORDERED: NALBUPHINE HCL INJ 10 MG/1 ML AMPULE IM ONE (09:27)
[2019-05-10] MEDS ORDERED: MORPHINE SULFATE 10 MG/ML INJ IM ONE ×3 (09:32→12:00)
[2019-05-10] MEDS ORDERED: MORPHINE SULFATE 10 MG/ML INJ ONE (09:33)
[2019-05-10 09:45] LABS: ABSOLUTE EOSINOPHILS # (AUTO) 0.1 10^3/uL (0.0-0.6); ABSOLUTE LYMPHOCYTES (AUTO) 1.4 10^3/uL (0.5-4.7); ABSOLUTE MONOCYTES (AUTO) 0.6 10^3/uL (0.1-1.4); ABSOLUTE NEUT (AUTO) 4.7 10^3/uL (1.7-8.2); BASOPHILS % (AUTO) 0.3 % (0-2); EOSINOPHILS % (AUTO) 1.7 % (0-6); HEMATOCRIT 29.1 % (36.0-47.0); HEMOGLOBIN 9.1 g/dL (12.0-15.5); LYMPHOCYTES % (AUTO) 20.3 % (13-45); MEAN CORPUSCULAR HEMOGLOBIN 20.7 pg (27.0-33.4); MEAN CORPUSCULAR HGB CONC 31.2 g/dL (32.0-36.0); MEAN CORPUSCULAR VOLUME 66 fl (80-97); MONOCYTES % (AUTO) 8.6 % (3-13); PLATELET COUNT 173 10^3/uL (150-450); RED BLOOD COUNT 4.39 10^6/uL (3.72-5.28); RED CELL DISTRIBUTION WIDTH 16.9 % (11.5-14.0); SEGMENTED NEUTROPHILS % (AUTO) 69.1 % (42-78); TOTAL CELLS COUNTED % (AUTO) 100 %; WHITE BLOOD COUNT 6.9 10^3/uL (4.0-10.5)
[2019-05-10 10:04] LABS: ALBUMIN 3.8 g/dL (3.5-5.0); ALKALINE PHOSPHATASE 178 U/L (38-126); ANION GAP 9 (5-19); ASPARTATE AMINO TRANSFERASE 20 U/L (14-36); BILIRUBIN,DIRECT 0.1 mg/dL (0.0-0.4); BILIRUBIN,TOTAL 0.4 mg/dL (0.2-1.3); BLOOD UREA NITROGEN 7 mg/dL (7-20); CALCIUM 9.4 mg/dL (8.4-10.2); CARBON DIOXIDE 22 mmol/L (22-30); CHLORIDE 107 mmol/L (98-107); POTASSIUM 4.4 mmol/L (3.6-5.0); TOTAL PROTEIN 7.5 g/dL (6.3-8.2); URIC ACID 3.6 mg/dL (2.5-6.2)
[2019-05-10 10:11] LABS: APPEARANCE,URINE SLIGHTLY-CLOUDY; BILIRUBIN,URINE NEGATIVE (NEGATIVE); COLOR,URINE YELLOW; GLUCOSE, URINE NEGATIVE (NEGATIVE); KETONES,URINE NEGATIVE (NEGATIVE); LEUKOCYTE ESTERASE,URINE LARGE (NEGATIVE); NITRITE,URINE NEGATIVE (NEGATIVE); PROTEIN,URINE NEGATIVE (NEGATIVE); URINE SPECIFIC GRAVITY 1.009; UROBILINOGEN,URINE NEGATIVE mg/dL (<2.0)
[2019-05-10 10:26] LABS: GLUCOSE 67 mg/dL (75-110)
[2019-05-10 10:26] LABS: URINE AMPHETAMINES SCREEN NEGATIVE; URINE BARBITURATES SCREEN NEGATIVE; URINE BENZODIAZEPINES SCREEN NEGATIVE; URINE COCAINE SCREEN NEGATIVE; URINE MARIJUANA (THC) SCREEN NEGATIVE; URINE METHADONE SCREEN NEGATIVE; URINE PHENCYCLIDINE SCREEN NEGATIVE
[2019-05-10 10:41] LABS: UR PRO/CREAT RATIO RESULT 0.2 mg/mg (0.0-0.2); URINE CREATININE 68.6 mg/dL (16-327); URINE PROTEIN 14.4 mg/dL (<12)
[2019-05-10] MEDS ORDERED: METOCLOPRAMIDE HCL 10 MG TABLET ONE (11:46)
[2019-05-10] MEDS ORDERED: METOCLOPRAMIDE HCL 10 MG TABLET PO ONE (12:30)
== END 2019-05-10 12:40 | disposition home or self-care (01) ==
LOC: LC 08:53
PROVIDERS: ATTEND Obstetrics & Gynecology
PROC: 4A1HXCZ Monitoring of Products of Conception, Cardiac Rate, External Approach (ICD-10-PCS; principal; 2019-05-10)
DX: O14.93 Unspecified pre-eclampsia, third trimester (principal); Z3A.38 38 weeks gestation of pregnancy
CPT/HCPCS: 59025; 36415; 83615; 84156; 84550; 82570; 85025; 80053; 81001; 80307; J3490; J2270

== ENCOUNTER 2019-05-11 00:34 | Inpatient (IN) | payer MEDICAID ==
[2019-05-11] MEDS ORDERED: RINGERS SOLUTION,LACTATED 1,000 ML IV PRN (00:42)
[2019-05-11] MEDS ORDERED: PHENYLEPHRINE HCL INJ/PF 10 MG/1 ML SDV ONE (00:58)
[2019-05-11] MEDS ORDERED: FENTANYL CITRATE INJ/PF 100 MCG/2 ML AMPUL ONE (00:58)
[2019-05-11] MEDS ORDERED: EPHEDRINE SULFATE INJ 50 MG/1 ML AMPULE ONE (00:58)
[2019-05-11] MEDS ORDERED: FENTANYL/BUPIVACAINE/NS/PF 300 MCG/150 ML RTUINJ EPI ONE (00:58)
[2019-05-11] MEDS ORDERED: BUPIVACAINE HCL 0.25 % INJ/PF (2.5 MG/1 ML) 30 ML VIAL ONE (00:59)
[2019-05-11] MEDS ORDERED: RINGERS SOLUTION,LACTATED 1,000 ML IV ONE (01:00)
[2019-05-11 01:03] LABS: ABSOLUTE EOSINOPHILS # (AUTO) 0.1 10^3/uL (0.0-0.6); ABSOLUTE LYMPHOCYTES (AUTO) 1.8 10^3/uL (0.5-4.7); ABSOLUTE MONOCYTES (AUTO) 0.5 10^3/uL (0.1-1.4); ABSOLUTE NEUT (AUTO) 4.7 10^3/uL (1.7-8.2); BASOPHILS % (AUTO) 0.3 % (0-2); EOSINOPHILS % (AUTO) 1.9 % (0-6); HEMATOCRIT 31.6 % (36.0-47.0); LYMPHOCYTES % (AUTO) 25.7 % (13-45); MEAN CORPUSCULAR HEMOGLOBIN 20.9 pg (27.0-33.4); MEAN CORPUSCULAR HGB CONC 31.4 g/dL (32.0-36.0); MEAN CORPUSCULAR VOLUME 66 fl (80-97); PLATELET COUNT 185 10^3/uL (150-450); RED BLOOD COUNT 4.77 10^6/uL (3.72-5.28); RED CELL DISTRIBUTION WIDTH 16.6 % (11.5-14.0); SEGMENTED NEUTROPHILS % (AUTO) 65.1 % (42-78); TOTAL CELLS COUNTED % (AUTO) 100 %; WHITE BLOOD COUNT 7.2 10^3/uL (4.0-10.5)
[2019-05-11 01:16] LABS: APPEARANCE,URINE SLIGHTLY-CLOUDY; BILIRUBIN,URINE NEGATIVE (NEGATIVE); COLOR,URINE YELLOW; GLUCOSE, URINE NEGATIVE (NEGATIVE); KETONES,URINE NEGATIVE (NEGATIVE); LEUKOCYTE ESTERASE,URINE NEGATIVE (NEGATIVE); NITRITE,URINE NEGATIVE (NEGATIVE); PROTEIN,URINE NEGATIVE (NEGATIVE); URINE SPECIFIC GRAVITY 1.012; UROBILINOGEN,URINE NEGATIVE mg/dL (<2.0)
[2019-05-11 01:32] LABS: URINE AMPHETAMINES SCREEN NEGATIVE; URINE BARBITURATES SCREEN NEGATIVE; URINE BENZODIAZEPINES SCREEN NEGATIVE; URINE COCAINE SCREEN NEGATIVE; URINE MARIJUANA (THC) SCREEN NEGATIVE; URINE METHADONE SCREEN NEGATIVE; URINE PHENCYCLIDINE SCREEN NEGATIVE
[2019-05-11] MEDS ORDERED: LIDOCAINE 1% INJ-PF (10 MG/ML) 30 ML SDV ONE (05:56)
[2019-05-11] MEDS ORDERED: OXYTOCIN 10 UNIT/ML VIAL ONE (05:56)
[2019-05-11] MEDS ORDERED: MISOPROSTOL 0.2 MG TABLET ONE (05:56)
[2019-05-11] MEDS ORDERED: OXYTOCIN/NORMAL SALINE 20 UNIT/1,000 ML RTUINJ ONE (05:56)
[2019-05-11] MEDS ORDERED: OXYTOCIN/NORMAL SALINE 20 UNIT/1,000 ML RTUINJ IV PRN ×2 (05:58→10:42)
[2019-05-11] MEDS ORDERED: ONDANSETRON HCL INJ/PF 4 MG/2 ML SDV IV ONE (07:17)
[2019-05-11] MEDS ORDERED: ONDANSETRON HCL INJ/PF 4 MG/2 ML SDV ONE (07:17)
--- NOTE | 2019-05-11 10:04 | Admission Physical ---
Datetime Report Generated by CPN: 05/11/2019 10:04 CURRENT ADMISSION Chief Complaint: Suspected Ruptured Membranes Indication for Induction: Not Applicable; Gestational HTN Admit Impression : Term, Intrauterine ; Ruptured Membranes Admit Plan: Admit to Unit; Initiate Labor Protocol ALLERGIES Medication Allergies: No Medication Allergies: No Known Allergies (05/11/2019) Latex: No Latex Allergies Food Allergies: none Environmental Allergies: none OBSTETRICAL HISTORY EDC: 05/22/2019 00:00 : 2 Para: 1 Term: 0 : 1 SAB: 0 IAB: 0 Ectopic: 0 Livin Cesareans: 0 VBACs: 0 Multiple Births: 0 Gestational Diabetes: No Rh Sensitization: No Incompetent Cervix: No NICOLAS: No Infertility: No ART Treatment: No Uterine Anomaly: No IUGR: No Hx Previous C/S: No Macrosomia: No Hx Loss/Stillborn: No PIH: Yes Hx : No Placenta Previa/Abruption: No Depression/PP Depression: No PTL/PROM: No Post Hemorrhage: No Current Procedures: Ultrasound; NST Obstetrical History Comments: 2009 36 weeks IOL for Pre E G2- current on valtrex SEE RECORDS Alcohol: No Marijuana : No Cocaine: No Other Illicit Drugs: No Cigarettes: Never Smoker. [id number] MEDICAL HISTORY Diabetes: No Blood Transfusion: No Pulmonary Disease (Asthma, TB): No Breast Disease: No Hypertension: Yes Electrician Sound Surgery: No Heart Disease: No Hosp/Surgery: No Autoimmune Disorder: No Anesthetic Complications: No Kidney Disease: No Abnormal Pap Smear: No Neuro/Epilepsy: No Psychiatric Disorders: No Other Medical Diseases: No Hepatitis/Liver Disease: No Significant Family History: No Varicosities/Phlebitis: No Trauma/Violence : No Thyroid Dysfunction: No Medical History Comments: HTN, anemia INFECTIOUS HISTORY Gonorrhea: No Genital Herpes: Yes Chlamydia: No Tuberculosis: No Syphilis: No Hepatitis: No HIV/AIDS Exposure: No Rash or Viral Illness: No HPV: No Infectious History Comments: 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 36 weeks PHYSICAL EXAM General: Normal HEENT: Normal Neurologic: Normal Thyroid: Deferred Heart: Normal Lungs: Normal Breast: Deferred Back: Normal Abdomen: Normal Genitourinary Exam: Normal Extremities: Normal DTRs: Normal Pelvic Type: Adequate Vital Signs: Reviewed; Within Normal Limits VAGINAL EXAM Dilatation: 8 Effacement: 80 Station: 0 Contraction Comments: irritability MEMBRANES Pooling: Positive Membranes: Ruptured FETUS A EGA: 22.5 Monitoring: External US FHR- Baseline: 110 Variability: Moderate 6-25bpm Decelerations: None FHR Category: Category I Estimated Weight (gm): 3300 Presentation: Vertex Admit Comment: SROM at 0015, pitocin augmentation. normal progression of labor. P: anticipate PLANS FOR LABOR AND DELIVERY Labor and Delivery: None Pain Management: Epidural Feeding Preference: Formula Benefit of Breast Feed Discussed: Yes Circumcision: Yes INFORMED CONSENT Assignment: Aime Benito MD Signature: with User ID: [email or web address] : with User ID: [email or web address]
[2019-05-11] MEDS ORDERED: PSEUDOEPHEDRINE HCL 30 MG TABLET PO PRN (10:42)
[2019-05-11] MEDS ORDERED: ZOLPIDEM TARTRATE 5 MG TABLET PO PRN (10:42)
[2019-05-11] MEDS ORDERED: MAGNESIUM HYDROXIDE SUSP 30 ML UDCUP PO PRN (10:42)
[2019-05-11] MEDS ORDERED: GLYCERIN/WITCH HAZEL LEAF 1 EACH MED..WIPE TP PRN (10:42)
[2019-05-11] MEDS ORDERED: DIBUCAINE 1% OINTMENT 56 GM TP PRN (10:42)
[2019-05-11] MEDS ORDERED: PROMETHAZINE HCL 25 MG TABLET PO PRN (10:42)
[2019-05-11] MEDS ORDERED: NA PHOS,M-B/NA PHOS,DI-BA (ADULT) 133 ML ENEMA PR PRN (10:42)
[2019-05-11] MEDS ORDERED: ACETAMINOPHEN WITH CODEINE #3 TABLET PO PRN (10:42)
[2019-05-11] MEDS ORDERED: PROMETHAZINE HCL INJ 25 MG/1 ML VIAL IV PRN (10:42)
[2019-05-11] MEDS ORDERED: MEASLES,MUMPS&RUBELLA VACC/PF 0.5 ML VIAL SUBCUT PRN (10:42)
[2019-05-11] MEDS ORDERED: DIPH/PERTUSS(ACELL)/TETANUS VAC/PF 0.5 ML SYR (>=10YO) IM PRN (10:42)
[2019-05-11] MEDS ORDERED: DIPHENHYDRAMINE HCL 25 MG CAPSULE PO PRN (10:42)
[2019-05-11] MEDS ORDERED: BENZOCAINE/MENTHOL AEROSOL SPRAY 56 ML TOP PRN (10:42)
[2019-05-11] MEDS ORDERED: PROMETHAZINE HCL 25 MG SUPP.RECT PR PRN (10:42)
[2019-05-11] MEDS ORDERED: ACETAMINOPHEN 325 MG TABLET PO PRN (10:42)
[2019-05-11] MEDS ORDERED: ACETAMINOPHEN 325 MG TABLET ONE (12:00)
[2019-05-11] MEDS: IBUPROFEN 800 MG TABLET PO SCH ×3 (12:10→21:43)
--- NOTE | 2019-05-11 12:28 | Delivery Summary ---
Del Sum A-C Datetime Report Generated by CPN: 05/11/2019 12:27 DELIVERY PERSONNEL DELIVERY PERSONNEL: [id number] Delivery Doctor:: Sara Byrd CNM Nurse Police Captain Certified:: Sara Byrd CNM Labor and Delivery Nurse:: Luli Kinsey RNcasino supervisor Nurse:: Leda Elkins RN Assistant Commissioner/STEEPING PRESS TENDER: Ana M Rubio, RECORDS ASSOCIATE MATERNAL INFORMATION Delivery Anesthesia: Epidural Medications After Delivery: Pitocin Bolus-Please Comment Meds After Delivery Comment: pitocin 20 units in 1 L NS bolusing per order Delivery QBL: 350 Maternal Complications: None Provider Comments: VINCENT VIABLE MALE INFANT WITH SPONTANEOUS CRY, SPONTANEOUS PLACENTA INTACT WITH 3VC. NO LACERATIONS. MOTHER AND INFANT STABLE IN L_D #3. LABOR SUMMARY EDC: 05/22/2019 00:00 No. Babies in Womb: 1 Attempted: No Labor Anesthesia: Epidural LABOR INFORMATION Reason for Induction: Not Applicable Onset of Labor: 05/11/2019 10:21 Complete Dilatation: 05/11/2019 10:21 Oxytocin: Augmentation Group B Beta Strep: Negative Antibiotics # of Doses: 0 Steroids Given: None Reason Steroids Not Administered: Not Applicable MEMBRANES Membranes Rupture Method: Spontaneous Rupture of Membranes: 05/11/2019 00:15 Length of Rupture (hr): 10.18 Amniotic Fluid Color: Clear Amniotic Fluid Amount: Large Amniotic Fluid Odor: Normal STAGES OF LABOR Stage 1 hr: 0 Stage 1 min: 0 Stage 2 hr: 0 Stage 2 min: 5 Stage 3 hr: 0 Stage 3 min: 5 Total Time in Labor hr: 0 Total Time in Labor min: 10 VAGINAL DELIVERY Episiotomy: None Laceration #1: None Laceration Repair: Not Applicable Sponge Count Correct: Yes Sharps Count Correct: Yes CSECTION DELIVERY Primary Indication: N/A Secondary Indication: N/A CSection Incidence: N/A Labor: N/A Elective: N/A CSection Incision: N/A BABY A INFORMATION Delivery Date/Time: 05/11/2019 10:26 Method of Delivery: Vaginal Born in Route : No : N/A Forceps: N/A Vacuum Extraction: N/A Shoulder Dystocia : No PRESENTATION/POSITION BABY A Presentation: Cephalic Cephalic Presentation: Vertex Vertex Position: Left Occipital Anterior Breech Presentation: N/A PLACENTA INFORMATION BABY A Placenta Delivery Time : 05/11/2019 10:31 Placenta Method of Delivery: Spontaneous Placenta Status: Delivered SCORES BABY A Heart Rate 1 min: >100 bpm Resp Effort 1 min: Good Cry Reflex Irritability 1 min: Cough or Sneeze or Pulls Away Muscle Tone 1 min: Active Motion Color 1 min: Blue/Pale Resuscitation Effort 1 min: Tactile Stimulation SCORE 1 MIN: 8 Heart Rate 5 min: >100 bpm Resp Effort 5 min: Good Cry Reflex Irritability 5 min: Cough or Sneeze or Pulls Away Muscle Tone 5 min: Active Motion Color 5 min: Body [place], Extremities Blue Resuscitation Effort 5 min: N/A SCORE 5 MIN: 9 INFANT INFORMATION BABY A Gestational Age at Delivery: 38.3 Gestational Status: Early Term- 37- 38.6 Weeks Infant Outcome : Liveborn Infant Condition : Stable Sex: Male IDENTIFICATION BABY A Verification Date/Time: 05/11/2019 10:36 ID Band Number: [id number] Mother's Name Verified: Yes RN Verifying : C Caribou RN Additional Verifying Personnel: Kevin Rubio RECORDS ASSOCIATE WEIGHT/LENGTH BABY A Infant Birthweight (gm): 3446 Infant Weight (lb): 7 Infant Weight (oz): 10 Length (in): 21.00 Length (cm): 53.34 CORD INFORMATION BABY A No. Cord Vessels: 3 Nuchal Cord : N/A Cord Blood Taken: Yes-For Storage (Mom's Blood type +) Suction: None ASSESSMENT BABY A Infant Complications: None Physical Findings at Delivery: Within Normal Limits Skin to Skin: Yes Skin to Skin Time (min): 60 Survey Superintendent/ALS Called : No Infant Care By: CLOVER Beckham Transferred To: Remains with Mother BABY B INFORMATION : N/A SIGNATURES Assignment: Aime Benito MD Signature: with User ID: [email or web address] : with User ID: [email or web address] : I was personally available for consultation and serving as supervising physician for the MLP.
[2019-05-11] MEDS: FERROUS SULFATE 325 MG TABLET PO SCH (18:28)
[2019-05-11] MEDS: DOCUSATE SODIUM 100 MG CAPSULE PO SCH (18:28)
[2019-05-11] MEDS: FAMOTIDINE 20 MG TABLET PO SCH (21:43)
[2019-05-12] MEDS: IBUPROFEN 800 MG TABLET PO SCH ×3 (06:09→21:18)
[2019-05-12] MEDS: ACETAMINOPHEN WITH CODEINE #3 TABLET PO PRN (06:10)
[2019-05-12 06:29] LABS: HEMATOCRIT 24.1 % (36.0-47.0); MEAN CORPUSCULAR HEMOGLOBIN 20.8 pg (27.0-33.4); MEAN CORPUSCULAR HGB CONC 31.3 g/dL (32.0-36.0); MEAN CORPUSCULAR VOLUME 66 fl (80-97); PLATELET COUNT 140 10^3/uL (150-450); RED BLOOD COUNT 3.63 10^6/uL (3.72-5.28); RED CELL DISTRIBUTION WIDTH 17.1 % (11.5-14.0); WHITE BLOOD COUNT 6.8 10^3/uL (4.0-10.5)
[2019-05-12 06:35] LABS: HEMOGLOBIN 7.5 g/dL (12.0-15.5)
[2019-05-12] MEDS: FERROUS SULFATE 325 MG TABLET PO SCH ×2 (09:02→18:41)
[2019-05-12] MEDS: FAMOTIDINE 20 MG TABLET PO SCH ×2 (09:02→21:18)
[2019-05-12] MEDS: DOCUSATE SODIUM 100 MG CAPSULE PO SCH ×2 (09:02→18:41)
[2019-05-12] MEDS: PRENATAL VITAMIN W DHA CAPSULE PO SCH (09:06)
[2019-05-12] MEDS: SENNOSIDES/DOCUSATE 8.6-50 MG 1 EACH TABLET PO SCH (09:07)
--- NOTE | 2019-05-12 09:11 | Progress Note ---
Provider Note Provider Note: wrong EGA in H&P; actual EGA was 38w3d
--- NOTE | 2019-05-12 09:15 | PDOC PROGRESS REPORT ---
Subjective-OB Progress Note for:: 05/12/19 Subjective: reports bleeding slowing, pain controlled with current meds, denies needs Physical Exam (OB) Vital Signs: Temp Pulse Resp BP Pulse Ox 98.3 F 84 16 119/79 100 05/12/19 07:23 05/12/19 07:23 05/12/19 07:23 05/12/19 07:23 05/12/19 07:23 Intake & Output 05/11/19 05/12/19 05/13/19 06:59 06:59 06:59 Intake Total 1200 Balance 1200 Weight 84 kg - PIH/Pre-Eclampsia Clonus: Negative Headache: Absent - Abdomen Description: Tender, Soft Hernia Present: No Fundal Description: Firm Fundal Height: u/u - u/2 - Abdominal Distension: No distension - Extremities Lower extremities: Ruthie's sign - neg Calf: Normal, Nontender Objective-Diagnostic Laboratory: 05/12/19 05:48 05/12/19 05:48 WBC 6.8 RBC 3.63 L Hgb 7.5 L D Hct 24.1 L MCV 66 L MCH 20.8 L MCHC 31.3 L RDW 17.1 H Plt Count 140 L Assessment and Plan(PN) - Assessment and Plan (1) Normal vaginal delivery Is this a current diagnosis for this admission?: Yes (2) Gestational hypertension Is this a current diagnosis for this admission?: Yes (3) SROM (spontaneous rupture of membranes) Is this a current diagnosis for this admission?: Yes (4) Spontaneous onset of labor Is this a current diagnosis for this admission?: Yes - Time Spent with Patient Time with patient: Less than 15 minutes Medications reviewed and adjusted accordingly: Yes - Disposition Anticipated Discharge: Home Within: within 24 hours
[2019-05-13] MEDS: IBUPROFEN 800 MG TABLET PO SCH (06:05)
[2019-05-13 08:19] VITALS: BP 135/94
[2019-05-13] MEDS: ACETAMINOPHEN WITH CODEINE #3 TABLET PO PRN (08:20)
[2019-05-13] MEDS: FAMOTIDINE 20 MG TABLET PO SCH (09:53)
[2019-05-13] MEDS: DOCUSATE SODIUM 100 MG CAPSULE PO SCH (09:54)
[2019-05-13] MEDS: PRENATAL VITAMIN W DHA CAPSULE PO SCH (09:54)
[2019-05-13] MEDS: SENNOSIDES/DOCUSATE 8.6-50 MG 1 EACH TABLET PO SCH (09:54)
[2019-05-13] MEDS: FERROUS SULFATE 325 MG TABLET PO SCH (09:54)
--- NOTE | 2019-05-13 12:12 | PDOC DISCHARGE SUMMARY ---
Impression - Admit/DC Date/PCP Admission Date/Primary Care Provider: 05/11/19 00:49 ODETTE MATA MD Discharge Date: 05/13/19 - Discharge Diagnosis (1) Normal vaginal delivery Is this a current diagnosis for this admission?: Yes (2) Gestational hypertension Is this a current diagnosis for this admission?: Yes (3) SROM (spontaneous rupture of membranes) Is this a current diagnosis for this admission?: Yes (4) Spontaneous onset of labor Is this a current diagnosis for this admission?: Yes (5) Anemia Is this a current diagnosis for this admission?: Yes - Additional Information Discharge Diet: Regular Discharge Activity: Balance Activity w/Rest, Pelvic Rest Referrals: ODETTE MATA MD [Primary Care Provider] - Prescriptions: Ferrous Sulfate [Feosol 325 mg Tablet] 325 mg PO BID #60 tablet Ibuprofen [Motrin 800 mg Tablet] 800 mg PO Q8HP PRN #60 tablet PRN Reason: Home Medications: Ferrous Sulfate [Feosol 325 mg Tablet] 325 mg PO BID #60 tablet 05/13/19 Ibuprofen [Motrin 800 mg Tablet] 800 mg PO Q8HP PRN #60 tablet 05/13/19 HPI Gestational Age: 38+3 Reason(s) for Admission: Onset of Labor Procedures: NST Intrapartum Procedure(s): Spontaneous Vaginal Delivery Hospital [facility]. had normal vaginal delivery Results Laboratory Results: WBC 6.8 10^3/uL (4.0-10.5) 05/12/19 05:48 RBC 3.63 10^6/uL (3.72-5.28) L 05/12/19 05:48 Hgb 7.5 g/dL (12.0-15.5) L D 05/12/19 05:48 Hct 24.1 % (36.0-47.0) L 05/12/19 05:48 MCV 66 fl (80-97) L 05/12/19 05:48 MCH 20.8 pg (27.0-33.4) L 05/12/19 05:48 MCHC 31.3 g/dL (32.0-36.0) L 05/12/19 05:48 RDW 17.1 % (11.5-14.0) H 05/12/19 05:48 Plt Count 140 10^3/uL (150-450) L 05/12/19 05:48 Lymph % (Auto) 25.7 % (13-45) 05/11/19 00:51 [place] % (Auto) 7.0 % (3-13) 05/11/19 00:51 Eos % (Auto) 1.9 % (0-6) 05/11/19 00:51 Baso % (Auto) 0.3 % (0-2) 05/11/19 00:51 Absolute Neuts (auto) 4.7 10^3/uL (1.7-8.2) 05/11/19 00:51 Absolute Lymphs (auto) 1.8 10^3/uL (0.5-4.7) 05/11/19 00:51 Absolute Monos (auto) 0.5 10^3/uL (0.1-1.4) 05/11/19 00:51 Absolute Eos (auto) 0.1 10^3/uL (0.0-0.6) 05/11/19 00:51 Absolute Basos (auto) 0.0 10^3/uL (0.0-0.2) 05/11/19 00:51 Seg Neutrophils % 65.1 % (42-78) 05/11/19 00:51 Urine Color YELLOW 05/11/19 00:50 Urine Appearance SLIGHTLY-CLOUDY 05/11/19 00:50 Urine pH 6.0 (5.0-9.0) 05/11/19 00:50 Ur Specific [place] 1.012 05/11/19 00:50 Urine Protein NEGATIVE mg/dL (NEGATIVE) 05/11/19 00:50 Urine Glucose (UA) NEGATIVE mg/dL (NEGATIVE) 05/11/19 00:50 Urine Ketones NEGATIVE mg/dL (NEGATIVE) 05/11/19 00:50 Urine Blood NEGATIVE (NEGATIVE) 05/11/19 00:50 Urine Nitrite NEGATIVE (NEGATIVE) 05/11/19 00:50 Urine Bilirubin NEGATIVE (NEGATIVE) 05/11/19 00:50 Urine Urobilinogen NEGATIVE mg/dL (<2.0) 05/11/19 00:50 Ur Leukocyte Esterase NEGATIVE (NEGATIVE) 05/11/19 00:50 Urine Ascorbic Acid 20 (NEGATIVE) H 05/11/19 00:50 Urine Opiates Screen UNCONFIRMED POSITIVE 05/11/19 00:50 Urine Methadone Screen NEGATIVE 05/11/19 00:50 Ur Barbiturates Screen NEGATIVE 05/11/19 00:50 Ur Phencyclidine Scrn NEGATIVE 05/11/19 00:50 Ur Amphetamines Screen NEGATIVE 05/11/19 00:50 U Benzodiazepines Scrn NEGATIVE 05/11/19 00:50 Urine Cocaine Screen NEGATIVE 05/11/19 00:50 U Marijuana (THC) Screen NEGATIVE 05/11/19 00:50 RPR NONREACTIVE (NONREACTIVE) 05/11/19 00:51 Blood Type AB POSITIVE 05/11/19 00:51 Antibody Screen NEGATIVE 05/11/19 00:51 Plan Plan of Treatment: f/u at [facility] in 1 week for BP check
== END 2019-05-13 14:15 | disposition home or self-care (01) | DRG 807 ==
LOC: LC 00:34 → LR 00:49 → 2S 12:35
PROVIDERS: ADMIT Obstetrics & Gynecology Gynecology; ATTEND Obstetrics & Gynecology Gynecology
PROC: 10E0XZZ Delivery of Products of Conception, External Approach (ICD-10-PCS; principal; 2019-05-11)
DX: O13.4 Gestational [pregnancy-induced] hypertension without significant proteinuria, complicating childbirth (principal); Z37.0 Single live birth; D64.9 Anemia, unspecified; O99.02 Anemia complicating childbirth; Z3A.38 38 weeks gestation of pregnancy
CPT/HCPCS: 36415; 80307; 81005; 85025; 85027; 86592; 86850; 86900; 86901; 94760; J2370; J2405; J2590; J3010; J3490

== ENCOUNTER → 2020-05-13 | Outpatient (CLI) | payer MEDICAID ==
[2020-05-13 10:03] VITALS: BP 128/76
--- NOTE | 2020-05-13 10:03 | ER [facility] ASSESSMENT REPORT ---
Intake - In the Last 14 days Have you traveled outside [place]?: No Have you been in close contact with someone CONFIRMED: No Worked in Healthcare?: Yes - Symptoms Subjective Fever(Minto feverish): No Chills: No Muscule Aches: No Runny Nose: No Sore Throat: No Cough (New or worsening chronic cough): No Shortness of breath: No Nausea or Vomiting: Yes Headache: No Abdominal Pain: No Diarrhea(3 or more loose stools in last 24 hours): No - Do you have any of the following Chronic lung disease: Asthma or emphysema or COPD: No Cystic Fibrosis: No Diabetes: No High Blood Pressure: No Cardiovascular Disease: No Chronic Kidney Disease: No Chronic Liver Disease: No Chronic blood disorder like Sickle Cell Disease: No Weak immune system due to disease or medication: No Neurologic condition that limits movement: No Developmental delay - Moderate to Severe: No Recent (within past 2 weeks) or current : No Morbid Obesity (>100 pounds over ideal weight): No - Objective Temperature: 98.6 F Pulse Rate: 83 Respiratory Rate: 18 Blood Pressure: 128/76 O2 Sat by Pulse Oximetry: 98 Objective: Given above, testing performed: If Testing Performed: Test Specimen Type Sent to General - General Information source: Patient Notes: Patient presents to the [facility] for screening for the coronavirus. Patient states that she has had nausea for the past 4 days. Patient states earlier in the week she had a fever but only for 1 day. Patient denies any significant medical history. - Related Data Allergies/Adverse Reactions: No Known Allergies Allergy (Verified 05/11/19 03:48) Past Medical History - General Information source: Patient - Social History Smoking Status: Never Smoker Family History: None - Medical History Medical History: Negative Neurological Medical History: Reports: Hx Migraine - chronic MCINTOSH "yrs" Renal/ Medical History: Denies: Hx Peritoneal Dialysis Musculoskeletal Medical History: Reports Hx Musculoskeletal Trauma Surgical Hx: Negative Physical Exam - Notes Notes: The patient was evaluated during the global Covid 19 pandemic, and that diagnosis was suspected/considered upon their initial presentation. Their evaluation, treatment and testing was consistent with current guidelines for patients who present with complaints or symptoms that may be related to Covid 19. Full physical exam could not be performed due to covid 19 isolation protocols. Constitutional: Nontoxic appearance, no acute distress Eyes: Nonicteric, extraocular movements intact, sclera clear Cardiovascular: Heart rate and rhythm regular, no JVD Respiratory: Breath sounds clear bilaterally, nonlabored breathing, no use of accessory muscles, no tachypnea Gastrointestinal: Abdomen not distended Muculoskeletal: Moves all extremities well Skin: Normal color Neuro: Awake alert oriented, normal speech Psych: Normal mood and affect Diagnostic Results Laboratory Results: Patient presents with symptoms worrisome for possible Covid 19. Patient does not have emergency worrying symptoms such as difficulty breathing, shortness of breath, chest pain, pressure, confusion or cyanosis. Patient appears suitable for discharge as they are not of an advanced age, do not have any chronic medical conditions such as diabetes, CAD, immune deficiency, chronic lung disease or chronic kidney disease. Patient's vital signs are stable and patient is nontoxic in appearance. Good return precautions have been discussed with patient, patient verbalized understanding and is agreeable with discharge plan of care at this time. Patient Education/Counseling Counseling/Education: Patient was provided with discharge information including: As a person under investigation for Covid 19, the [place] department of Health and Human Services, division of public health advises you to adhere to the following guidance until your test results are reported to you. If your test result is positive, you will receive additional information from your provider and your local health department at that time. Remain at home until you are cleared by the health provider or public health authorities. Keep a log of visitors to your home, notify any visitors to your home of your isolation status. If you plan to move to a new address or leave the [facility], notify the local health department in your County. Call your doctor or seek care if you have an urgent medical need. Before seeking medical care, call ahead to get instructions from the provider before arriving at the medical office clinic or hospital. Notify them that you are being tested for the virus that causes Covid 19 so that arrangements can be made, as necessary, to prevent transmission to others in the healthcare setting. Next, notify the local health department in your county. If a medical emergency arises and you need to call 911, inform the first responders that you are being tested for the virus that causes Covid 19. Next, notify the local health department in your county. [facility] Discharge - Discharge Clinical Impression: Encounter for screening laboratory testing for COVID-19 virus Condition: Stable Disposition: Home; Selfcare
[2020-05-13 11:23] LABS: A TYPE INFLUENZA AG NEGATIVE (NEGATIVE)
[2020-05-13 11:24] LABS: B INFLUENZA AG NEGATIVE (NEGATIVE)
== END ==
LOC: RDC 09:31
PROVIDERS: ATTEND Nurse Practitioner Family
DX: Z20.828 Contact with and (suspected) exposure to other viral communicable diseases (principal)
CPT/HCPCS: 87070; 87880; 87635; 87804; C9803; 99201; 99211